=== PATIENT | male | born 1955 | race Caucasian/White ===

== ENCOUNTER 2018-08-18 18:34 | Emergency (ER) | payer OTHER, MEDICAID, SELFPAY ==
[2018-08-18 18:55] VITALS: BP 146/92; PULSE 64; RESP 18; TEMP 36.8; O2SAT 97; BMI 21.7
--- NOTE | 2018-08-18 19:34 | DI.US.S_ITS ---
PROCEDURE: US SCROTUM INDICATIONS: TESTICLE PAIN TECHNIQUE: Real-time scanning was performed of the scrotum and testicles, with image documentation. Color and pulse Doppler interrogation was performed of both testicles. COMPARISON: None. FINDINGS: Right: Testicle is normal in size at 1.5 x 2.5 x 3.7 cm, and mildly heterogeneous in echotexture. Epididymis is surgically absent. At the epididymal head area several cystic structures are present, presumably postoperative. No hydrocele or varicoceles. Overlying scrotal skin is normal in thickness. Left: Testicle is normal in size at 1.8 x 2.9 x 3.9 cm, and homogeneous in echotexture. Epididymis is normal in overall size and morphology but mildly heterogeneous in echotexture. Slight left hydrocele or varicoceles. Overlying scrotal skin is normal in thickness. Doppler: Color and pulse Doppler demonstrate normal and symmetric arterial flow in both testicles. There was no visualized evidence of definite hernia at either inguinal canal. IMPRESSION: No hernia found bilaterally, at the inguinal canals. Source of testicular pain is not seen. Blood flow appears patent both arterial and venous bilaterally. Reported prior epididymal resection on the right. No testicular or epididymal mass is found. Dictated by: Vladimir Perez M.D. on 08/18/2018 at 20:56 Approved by: Vladimir Perez M.D. on 08/18/2018 at 21:19
--- NOTE | 2018-08-18 19:36 | ED.MALEGU ---
HPI - Male Genitourinary <CATHRYN Everett - Last Filed: 08/18/18 22:26> General Chief complaint: Urogenital-Male Stated complaint: Groin and lower back pain Time Seen by Provider: 08/18/18 19:03 Source: patient and family Mode of arrival: ambulatory Limitations: no limitations History of Present Illness HPI Narrative: The patient is a 62-year-old male with history of colon cancer presents with a chief complaint of testicular pain. He states has been going on for several weeks and has gotten much worse. He saw his PCP for it on Monday, had an ultrasound on Monday and does not know the results. These were done at [facility]. He states he is very concerned about his upcoming colonoscopy on the of this month, as he is concerned that the positioning for the colonoscopy will aggravate his testicular pain. Denies any dysuria urgency or frequency. The patient states he is having a colonoscopy on the of this month. He states that his testicular pain is much improved since last night. He is presenting with his sister today. Related Data Allergies Allergy/AdvReac Type Severity Reaction Status Date / Time No Known Drug Allergies Allergy Verified 08/18/18 18:59 Review of Systems <CATHRYN Everett - Last Filed: 08/18/18 22:26> Review of Systems GENERAL: Denies chills, fatigue, malaise, fever, sweats. HEENT: Denies sinus pain, ear pain, sore throat, difficulty swallowing, dizziness. RESPIRATORY: Denies dyspnea, cough, wheezing, hemoptysis, sputum. CARDIOVASCULAR: Denies chest pain, palpitations, orthopnea, edema, GASTROINTESTINAL: Denies nausea, vomiting, abdominal pain, diarrhea, constipation, melena. : See HPI MUSCULOSKELETAL: denies weakness, joint pain, or bony pain SKIN: Denies rash, skin lesions, or other NEUROLOGIC: Denies weakness, headache, numbness, change in speech, confusion, seizures, incoordination. PSYCHIATRIC: No concerning psychosocial issues. 12 point review of systems is negative except for those stated above PFSH <CATHRYN Everett - Last Filed: 08/18/18 22:26> Medical History (Updated 08/18/18 @ 22:23 by CATHRYN Everett) Colon cancer (Acute) Social History Smoking Status: Current every day smoker Social History Smoking Status: Current every day smoker Exam <CATHRYN Everett - Last Filed: 08/18/18 22:26> Narrative Exam Narrative: GENERAL: Elderly chronically ill-appearing male HEAD: Atraumatic. Normocephalic. No temporal or scalp tenderness. EYES: Pupils equal round and reactive. Extraocular motions intact. No scleral icterus. No injection or drainage. ENT: Nose without bleeding, purulent drainage or septal hematoma. Throat without erythema, tonsillar hypertrophy or exudate. Uvula midline. Airway patent. NECK: Trachea midline. No JVD or lymphadenopathy. Supple, nontender, no meningeal signs. CARDIOVASCULAR: Regular rate and rhythm RESPIRATORY: Clear to auscultation. Breath sounds equal bilaterally. No wheezes, rales, or rhonchi. No cough. No increased respiratory effort. No accessory muscle use. No stridor. GASTROINTESTINAL: Abdomen soft, non-tender, nondistended. No hepato-splenomegaly, or palpable masses. No guarding. Active bowel sounds all 4 quadrants. EXTREMITIES: No clubbing, cyanosis, or edema. No joint tenderness, effusion, or edema noted. BACK: Nontender without deformity or crepitance. No flank tenderness. NEURO: AOx3. SKIN: No rash or erythema. : Performed with Gilbert PÉREZ as middle or intermediate school principal. No palpable hernias. No penile discharge or rashes noted. Slight pain to palpation of bilateral testicles. Cremasteric reflexes intact bilaterally Initial Vital Signs Initial Vital Signs: Vital Signs Temperature 98.3 F 08/18/18 18:55 Pulse Rate 64 08/18/18 18:55 Respiratory Rate 18 08/18/18 18:55 Blood Pressure 146/92 H 08/18/18 18:55 Pulse Oximetry 97 08/18/18 18:55 <Oscar Leo DO - Last Filed: 08/19/18 02:39> Initial Vital Signs Initial Vital Signs: Vital Signs Temperature 98.3 F 08/18/18 18:55 Pulse Rate 64 08/18/18 18:55 Respiratory Rate 18 08/18/18 18:55 Blood Pressure 146/92 H 08/18/18 18:55 Pulse Oximetry 97 08/18/18 18:55 Course <CATHRYN Everett - Last Filed: 08/18/18 22:26> Orders Ordered: ED Orders 08/18/18 19:34 US scrotum Stat 08/18/18 20:08 Complete Blood Count AUTO DIFF Stat Comprehensive Metabolic Panel Stat Lactate (Lactic Acid) Stat Discontinued Medications Ketorolac Tromethamine (Toradol) 60 mg IM NOW ONE Stop: 08/18/18 21:26 Last Admin: 08/18/18 22:08 Dose: 60 mg Vital Signs - 8 hr 08/18/18 18:55 08/18/18 21:46 08/18/18 22:38 Temperature 98.3 F Pulse Rate 64 55 L 60 Respiratory Rate 18 15 Blood Pressure 146/92 H 128/88 Blood Pressure [Right Arm] 133/91 H Pulse Oximetry 97 96 <Oscar Leo DO - Last Filed: 08/19/18 02:39> Orders Ordered: ED Orders 08/18/18 19:34 US scrotum Stat 08/18/18 20:08 Complete Blood Count AUTO DIFF Stat Comprehensive Metabolic Panel Stat Lactate (Lactic Acid) Stat Discontinued Medications Ketorolac Tromethamine (Toradol) 60 mg IM NOW ONE Stop: 08/18/18 21:26 Last Admin: 08/18/18 22:08 Dose: 60 mg Vital Signs - 8 hr 08/18/18 18:55 08/18/18 21:46 08/18/18 22:38 Temperature 98.3 F Pulse Rate 64 55 L 60 Respiratory Rate 18 15 Blood Pressure 146/92 H 128/88 Blood Pressure [Right Arm] 133/91 H Pulse Oximetry 97 96 MDM - Male Genitourinary <CATHRYN Everett - Last Filed: 08/18/18 22:26> Lab Data Result diagrams: 08/18/18 20:08 08/18/18 20:08 Lab Results 08/18/18 08/18/18 08/18/18 Range/Units 20:08 20:08 20:08 WBC 10.0 (4.5-11.0) X10^3/uL RBC 5.04 (4.5-5.9) X10^6/uL Hgb 15.3 (13.5-17.5) g/dL Hct 44.5 (41-53) % MCV 88.4 (80-100) fL MCH 30.3 (26-34) PG MCHC 34.3 (30-36) % RDW 14.6 (11.6-14.8) % Plt Count 271 (150-400) X10^3/uL Neut % (Auto) 60.8 (50-75) % Lymph % (Auto) 26.7 (25-40) % [place] % (Auto) 5.5 (3-14) % Eos % (Auto) 6.3 H (2-4) % Baso % (Auto) 0.7 (0-2) % Neut # (Auto) 6100 (5824-5120) /uL Lymph # (Auto) 2700 (9089-8426) /uL [place] # (Auto) 500 (0-900) /uL Eos # (Auto) 600 H (0-450) /uL Baso # (Auto) 100 (0-100) /uL Sodium 136 L (137-145) mmol/L Potassium 4.0 (3.4-5.1) mmol/L Chloride 102 (98-107) mmol/L Carbon Dioxide 27 (22-32) mmol/L BUN 6 L (9-20) mg/dL Creatinine 0.80 (0.66-1.25) mg/dL Estimated GFR > 60.0 (>60) mL/min BUN/Creatinine Ratio 7.5 (6-22) Glucose 99 (80-110) mg/dL Lactate 0.7 (0.7-2.1) mmol/L Calcium 9.3 (8.4-10.2) mg/dL Total Bilirubin 0.5 (0.2-1.3) mg/dL AST 23 (17-59) IU/L ALT 13 L (21-72) IU/L Alkaline Phosphatase 116 (38-126) U/L Total Protein 7.0 (6.3-8.2) g/dL Albumin 4.3 (3.5-5.0) g/dL Globulin 2.7 (1.7-4.1) g/dL Albumin/Globulin Ratio 1.6 (1.0-2.8) Urine Dip Bedside Urine Glucose Negative Bedside Urine Bilirubin - Negative Bedside Urine Ketone ++ 40 Urine Specific [place] 1.025 Bedside Urine Occult Blood - Negative Bedside Urine pH 6.0 Bedside Urine Protein +/- 15 Bedside Urine Urobilinogen 1+ 2mg Bedside Urine Nitrite - Negative Bedside Urine Leukocytes - Negative Esterase Imaging Data Scrotal ultrasound: Radiologist's impression: [address] [id number] Ultrasound Report Signed Patient: Rayshawn Kasper [facility]#: [id number] : 5Acct:[id number] Age/Sex: 62 / MDate of Service: 08/18/18 Loc: ED Accession Number: [id number] Procedure: US scrotum Ordering Provider: Ivania Davenport PROCEDURE: US SCROTUM INDICATIONS: TESTICLE PAIN TECHNIQUE: Real-time scanning was performed of the scrotum and testicles, with image documentation. Color and pulse Doppler interrogation was performed of both testicles. COMPARISON: None. FINDINGS: Right: Testicle is normal in size at 1.5 x 2.5 x 3.7 cm, and mildly heterogeneous in echotexture. Epididymis is surgically absent. At the epididymal head area several cystic structures are present, presumably postoperative. No hydrocele or varicoceles. Overlying scrotal skin is normal in thickness. Left: Testicle is normal in size at 1.8 x 2.9 x 3.9 cm, and homogeneous in echotexture. Epididymis is normal in overall size and morphology but mildly heterogeneous in echotexture. Slight left hydrocele or varicoceles. Overlying scrotal skin is normal in thickness. Doppler: Color and pulse Doppler demonstrate normal and symmetric arterial flow in both testicles. There was no visualized evidence of definite hernia at either inguinal canal. IMPRESSION: No hernia found bilaterally, at the inguinal canals. Source of testicular pain is not seen. Blood flow appears patent both arterial and venous bilaterally. Reported prior epididymal resection on the right. No testicular or epididymal mass is found. Dictated by: Vladimir Perez M.D. on 08/18/2018 at 20:56 Approved by: Vladimir Perez M.D. on 08/18/2018 at 21:19 MDM Narrative Medical decision making narrative: The patient is a 62-year-old male who presents with a chief complaint of testicular pain. He has a normal ultrasound. He has grossly normal exam. He has a negative UA, grossly normal CBC and CMP and a negative lactate. We attempted to get medical records of from [facility]. However they are unable to be obtained. I did discuss at length follow up with his primary care provider as well as following through with the urology referral placed by his PCP. I did give the patient a copy of his ultrasound report as well as the disc with the results. Discussed at length coming back to the emergency department for any acute concerns such as chest pain, shortness of breath. Encouraged follow-up with PCP. Patient was given Toradol in the emergency department. No questions or concerns upon discharge. <Oscar Leo DO - Last Filed: 08/19/18 02:39> Lab Data Lab Results 08/18/18 08/18/18 08/18/18 Range/Units 20:08 20:08 20:08 WBC 10.0 (4.5-11.0) X10^3/uL RBC 5.04 (4.5-5.9) X10^6/uL Hgb 15.3 (13.5-17.5) g/dL Hct 44.5 (41-53) % MCV 88.4 (80-100) fL MCH 30.3 (26-34) PG MCHC 34.3 (30-36) % RDW 14.6 (11.6-14.8) % Plt Count 271 (150-400) X10^3/uL Neut % (Auto) 60.8 (50-75) % Lymph % (Auto) 26.7 (25-40) % [place] % (Auto) 5.5 (3-14) % Eos % (Auto) 6.3 H (2-4) % Baso % (Auto) 0.7 (0-2) % Neut # (Auto) 6100 (5531-9400) /uL Lymph # (Auto) 2700 (2117-5764) /uL [place] # (Auto) 500 (0-900) /uL Eos # (Auto) 600 H (0-450) /uL Baso # (Auto) 100 (0-100) /uL Sodium 136 L (137-145) mmol/L Potassium 4.0 (3.4-5.1) mmol/L Chloride 102 (98-107) mmol/L Carbon Dioxide 27 (22-32) mmol/L BUN 6 L (9-20) mg/dL Creatinine 0.80 (0.66-1.25) mg/dL Estimated GFR > 60.0 (>60) mL/min BUN/Creatinine Ratio 7.5 (6-22) Glucose 99 (80-110) mg/dL Lactate 0.7 (0.7-2.1) mmol/L Calcium 9.3 (8.4-10.2) mg/dL Total Bilirubin 0.5 (0.2-1.3) mg/dL AST 23 (17-59) IU/L ALT 13 L (21-72) IU/L Alkaline Phosphatase 116 (38-126) U/L Total Protein 7.0 (6.3-8.2) g/dL Albumin 4.3 (3.5-5.0) g/dL Globulin 2.7 (1.7-4.1) g/dL Albumin/Globulin Ratio 1.6 (1.0-2.8) Urine Dip Bedside Urine Glucose Negative Bedside Urine Bilirubin - Negative Bedside Urine Ketone ++ 40 Urine Specific [place] 1.025 Bedside Urine Occult Blood - Negative Bedside Urine pH 6.0 Bedside Urine Protein +/- 15 Bedside Urine Urobilinogen 1+ 2mg Bedside Urine Nitrite - Negative Bedside Urine Leukocytes - Negative Esterase Discharge Plan Departure Patient Disposition: Home Clinical Impression: Testicle pain Discharge Date/Time: 08/18/18 22:39 Interventions: ED Discharge Assessment Last Done: 08/18/18 22:38 Activity Restrictions/Additional Instructions: Your ultrasound came back normal today with normal blood flow. Your lab work was overall good. Your ultrasound shows no signs of infection. As we discussed, please follow-up with primary care provider. I also suggest following through with the urology referral. Please come back to emergency department for any acute concerns such as chest pain, shortness of breath etc We did give you an injection of Toradol in the emergency department today. <Oscar Leo DO - Last Filed: 08/19/18 02:39> Cosign ED Attending Silvia Attestation: I was immediately available in the department for consultation. Documentation has been reviewed. I agree with assessment and plan.
[2018-08-18 20:17] LABS: Add Manual Diff / Slide Review NO; Basophils Absolute Auto 100 /uL (0-100); Basophils Percent Auto 0.7 % (0-2); Eosinophils Absolute Auto 600 /uL (0-450); Eosinophils Percent Auto 6.3 % (2-4); Hematocrit 44.5 % (41-53); Hemoglobin 15.3 g/dL (13.5-17.5); Lymphocytes Absolute Auto 2700 /uL (1100-4500); Lymphocytes Percent Auto 26.7 % (25-40); Mean Corpuscular HGB Conc 34.3 % (30-36); Mean Corpuscular Hemoglobin 30.3 PG (26-34); Mean Corpuscular Volume 88.4 fL (80-100); Monocytes Absolute Auto 500 /uL (0-900); Monocytes Percent Auto 5.5 % (3-14); Neutrophils Absolute Auto 6100 /uL (1500-7000); Neutrophils Percent Auto 60.8 % (50-75); Platelet Count 271 X10^3/uL (150-400); Red Blood Cell Count 5.04 X10^6/uL (4.5-5.9); Red Cell Distribution Width 14.6 % (11.6-14.8)
--- NOTE | 2018-08-18 20:21 | PC.NURSE ---
pt states he is in ed because told him to check in to evaluate testicle pain. We reports testicle pain that started with the left and has moved to bilateral in the last three months. He states that whenever he lays in position he testicles light up and his prescribed oxycodone did not touch it. He has an upcoming colonoscoy and is concerned that being in position during that procedure will stop blood flow to his testicles and he doesnt want to wake up wheeling me into surgery because of testicle. Provider notified and requested records from .
[2018-08-18 20:29] LABS: Alanine Aminotransferase 13 IU/L (21-72); Albumin 4.3 g/dL (3.5-5.0); Albumin Globulin Ratio 1.6 (1.0-2.8); Alkaline Phosphatase 116 U/L (38-126); Aspartate Aminotransferase 23 IU/L (17-59); BUN Creatinine Ratio 7.5 (6-22); Bilirubin Total 0.5 mg/dL (0.2-1.3); Blood Urea Nitrogen 6 mg/dL (9-20); Calcium 9.3 mg/dL (8.4-10.2); Carbon Dioxide 27 mmol/L (22-32); Chloride 102 mmol/L (98-107); Estimated Glomerular Filt Rate > 60.0 mL/min (>60); Globulin 2.7 g/dL (1.7-4.1); Glucose 99 mg/dL (80-110); HEMOLYSIS < 15 (0-50); Lactate (Lactic Acid) 0.7 mmol/L (0.7-2.1); Sodium 136 mmol/L (137-145)
[2018-08-18 21:46] VITALS: BP 133/91; PULSE 55; RESP 15; O2SAT 96
[2018-08-18] MEDS: KETOROLAC 60 MG/2 ML VIAL IM (22:08)
[2018-08-18 22:38] VITALS: BP 128/88; PULSE 60
== END 2018-08-18 22:39 | disposition home or self-care (01) ==
PROVIDERS: Emergency Provider Nurse Practitioner Family
DX: N50.819 Testicular pain, unspecified (principal)
CPT/HCPCS: 36415; 76870; 80053; 81003; 83605; 85025; 96372; 99282; 99284; J1885

== ENCOUNTER → 2018-10-01 16:01 | Outpatient (CLI) | payer OTHER, MEDICAID, SELFPAY ==
[2018-10-01 17:17] LABS: Alanine Aminotransferase 13 IU/L (21-72); Albumin 4.8 g/dL (3.5-5.0); Albumin Globulin Ratio 2.2 (1.0-2.8); Alkaline Phosphatase 122 U/L (38-126); Aspartate Aminotransferase 20 IU/L (17-59); BUN Creatinine Ratio 7.8 (6-22); Bilirubin Total 0.4 mg/dL (0.2-1.3); Blood Urea Nitrogen 7 mg/dL (9-20); Calcium 9.6 mg/dL (8.4-10.2); Carbon Dioxide 28 mmol/L (22-32); Chloride 104 mmol/L (98-107); Cholesterol 213 mg/dL (140-199); Estimated Glomerular Filt Rate > 60.0 mL/min (>60); Globulin 2.2 g/dL (1.7-4.1); Glucose 100 mg/dL (80-110); HDL Cholesterol 59 mg/dL (40-60); HEMOLYSIS < 15 (0-50); LDL Cholesterol Calculated 116 mg/dL (<100); Magnesium 2.3 mg/dL (1.6-2.3); Potassium 4.6 mmol/L (3.4-5.1); Sodium 140 mmol/L (137-145); Triglycerides 190 mg/dL (35-150)
[2018-10-01 17:48] LABS: Thyroid Stimulating Hormone 4.15 uIU/mL (0.47-4.68)
== END ==
PROVIDERS: Visit Provider Internal Medicine Cardiovascular Disease
DX: R00.2 Palpitations (principal); E78.5 Hyperlipidemia, unspecified; I10 Essential (primary) hypertension
CPT/HCPCS: 36415; 80053; 80061; 83735; 84443

== ENCOUNTER → 2019-01-18 09:50 | Outpatient (CLI) | payer OTHER, MEDICAID, SELFPAY ==
--- NOTE | 2019-01-18 10:09 | DI.CT.S_ITS ---
PROCEDURE: CT ABDOMEN WO/W CON COMPARISON: [facility], CT, CT ABDOMEN PELVIS WITH CONTRAST, 12/10/2018, 13:55. INDICATIONS: RENAL LESION FINDINGS: Lungs appear clear. Trace pericardial effusion. Heart is mildly enlarged. Redemonstration of left upper pole round renal lesion measuring approximately 1.9 cm in diameter. Precontrast attenuation measures approximately 27 Hounsfield units, and this measures approximately 39 and 64 Hounsfield units on arterial and delayed phase imaging respectively. Simple appearing left renal cyst more inferiorly on image 26 series 5. Presumed some 5 mm cyst in the upper pole of the right kidney, too small to characterize. Left renal vein appears unremarkable. There are scattered hepatic hypodense lesions, probably cysts or hemangiomas although too small to characterize. Gallbladder unremarkable. Pancreas grossly unremarkable. Prominence of the pancreatic duct is unchanged. The adrenal glands and right kidney otherwise within normal limits. Large amount of stool seen throughout the visualized bowel loops. 3.4 cm infrarenal abdominal aortic aneurysm as before. IMPRESSION: CT appearance and enhancement characteristics of left upper pole renal lesion is suspicious for solid neoplasm, considered renal cell carcinoma until proven otherwise. Solid nature could be further confirmed with dedicated renal ultrasound as clinically warranted. Infrarenal abdominal aortic aneurysm as before. Multiple hepatic lesions, statistically cysts or hemangiomas although several which are too small to characterize accurately. Dictated by: Stuart Leal M.D. on 01/18/2019 at 17:26 Approved by: Stuart Leal M.D. on 01/18/2019 at 17:36
[2019-01-18 10:26] LABS: Blood Urea Nitrogen 9 mg/dL (9-20); Estimated Glomerular Filt Rate > 60.0 mL/min (>60)
== END ==
PROVIDERS: Visit Provider Urology
DX: N28.9 Disorder of kidney and ureter, unspecified (principal); N28.1 Cyst of kidney, acquired; I51.7 Cardiomegaly; I71.4 Abdominal aortic aneurysm, without rupture; K76.9 Liver disease, unspecified
CPT/HCPCS: 36415; 74170; 82565; 84520; Q9967

== ENCOUNTER 2021-02-16 01:23 | Emergency (ER) | payer OTHER, MEDICAID, SELFPAY ==
[2021-02-16] VITALS (9 sets, daily range): BP systolic 110–134; BP diastolic 65–87; PULSE 59–77; RESP 20; TEMP 36.7; O2SAT 95–97
[2021-02-16 02:01] LABS: Add Manual Diff / Slide Review NO; Basophils Absolute Auto 100 /uL (0-100); Basophils Percent Auto 0.9 % (0-2); Eosinophils Absolute Auto 600 /uL (0-450); Eosinophils Percent Auto 6.1 % (2-4); Hemoglobin 15.5 g/dL (13.5-17.5); Lymphocytes Absolute Auto 2400 /uL (1100-4500); Lymphocytes Percent Auto 22.8 % (25-40); Mean Corpuscular HGB Conc 34.4 % (30-36); Mean Corpuscular Hemoglobin 30.5 PG (26-34); Mean Corpuscular Volume 88.5 fL (80-100); Monocytes Absolute Auto 700 /uL (0-900); Monocytes Percent Auto 6.2 % (3-14); Neutrophils Absolute Auto 6700 /uL (1500-7000); Platelet Count 319 X10^3/uL (150-400); Red Blood Cell Count 5.09 X10^6/uL (4.5-5.9); Red Cell Distribution Width 14.3 % (11.6-14.8); White Blood Cell Count 10.5 X10^3/uL (4.5-11.0)
[2021-02-16 02:02] LABS: Alanine Aminotransferase 12 IU/L (<50); Albumin 4.5 g/dL (3.5-5.0); Albumin Globulin Ratio 1.4 (1.0-2.8); Alkaline Phosphatase 103 U/L (38-126); Aspartate Aminotransferase 28 IU/L (17-59); BUN Creatinine Ratio 8.2 (6-22); Bilirubin Total 0.5 mg/dL (0.2-1.3); Blood Urea Nitrogen 8 mg/dL (9-20); Calcium 10.1 mg/dL (8.4-10.2); Carbon Dioxide 32 mmol/L (22-32); Chloride 101 mmol/L (98-107); Estimated Glomerular Filt Rate > 60.0 mL/min (>60); Globulin 3.2 g/dL (1.7-4.1); Glucose 101 mg/dL (80-110); HEMOLYSIS < 15 (0-50); Lipase 103 U/L (23-300); Sodium 137 mmol/L (137-145); Total Protein 7.7 g/dL (6.3-8.2)
--- NOTE | 2021-02-16 03:42 | DI.CT.S_ITS ---
PROCEDURE: CT ABDOMEN PELVIS W CON INDICATIONS: Left lower quadrant pain, history of colon cancer and resection TECHNIQUE: After the administration of IV contrast, axial sections were acquired from the lung bases to the pubic symphysis. Coronal and sagittal reformats were performed. For radiation dose reduction, the following was used: automated exposure control, adjustment of mA and/or kV according to patient size. COMPARISON: [facility], CT, CT ABDOMEN PELVIS WITH CONTRAST, 09/05/2020, 16:27. Outside Film, CT, CT ABDOMEN RENAL PROTOCOL, 04/03/2020, 14:43. Outside Film, US, US RENAL COMPLETE, 08/15/2019, 15:15. Outside Film, CT, CT ABDOMEN PELVIS WITHOUT CONTRAST, 03/10/2014, 18:35. Outside Film, CT, CT ABDOMEN PELVIS WITH CONTRAST, 07/22/2015, 4:26. CT, CT ABDOMEN WO/W CON, 01/18/2019, 10:44. [facility], CT, CT ABDOMEN PELVIS WITH CONTRAST, 12/10/2018, 13:55. [facility], CT, CT ABDOMEN RENAL PROTOCOL, 05/01/2019, 12:41. [facility], CR, XR CHEST 2 VIEWS, 08/02/2019, 11:07. FINDINGS: Image quality: Excellent. Lung bases: Lung bases are clear. Mild emphysema.. Heart: Normal size. Sternotomy. There is a cardiac pacemaker. ABDOMEN: Liver: Normal size. Multiple hepatic hypodensities are likely cysts. Gallbladder: Unremarkable. Biliary ducts: Unremarkable. Pancreas: Unremarkable. Spleen: Unremarkable. Adrenal Glands: Unremarkable. Kidneys and Ureters: A 1.7 x 1.9 cm hypoenhancing mass is again noted in the superior pole of the left kidney, unchanged in size. Bilateral renal cysts. The largest cyst measures 2.1 cm in the lateral aspect of the left left kidney. Stomach and Bowel: Stomach, small bowel loops, and colon are unremarkable. Surgical suture in the splenic flexure There is a large amount of stool in colon. Normal appendix. Peritoneum: No abnormal intraperitoneal fluid. No free air. Ventral Wall: No hernia. Abdominal Nodes: No retroperitoneal or mesenteric adenopathy by size criteria. Vessels: There is saccular aortic aneurysm just below the renal arteries arising from the lateral wall of the aorta measuring 3.6 cm AP, 3.9 cm transverse and 4.8 cm longitudinal. PELVIS: Pelvic Organs: Unremarkable. Bladder: Mild concentric thickening of bladder wall. Enlarged prostate. Pelvic Nodes: No enlarged lymph nodes. Miscellaneous: No inguinal hernias are seen. Bones: Mild levoscoliosis. Degenerative changes are noted. IMPRESSION: 1. No acute abnormalities in abdomen or pelvis. 2. A large amount of stool in colon. 3. Infrarenal abdominal aortic aneurysm. 4. Stable 1.7 x 1.9 cm hypoenhancing mass in the superior pole of the left kidney. Renal cell carcinoma needs to be excluded. 5. Multiple hepatic cysts. 6. Enlarged prostate. Mild concentric thickening of bladder wall may be secondary to chronic bladder outlet obstruction. No significant discrepancy with the small craft operator radiology preliminary report. Dictated by: Uday Muhammad M.D. on 02/16/2021 at 8:09 Approved by: Uday Muhammad M.D. on 02/16/2021 at 8:32
--- NOTE | 2021-02-16 03:42 | ED_ITS ---
HPI - Abdominal Pain General Chief Complaint: Abdominal Pain Stated Complaint: abdomin/back/neck pain x7 days Time Seen by Provider: 02/16/21 03:29 Source: patient Mode of arrival: Ambulatory History of Present Illness HPI narrative: Patient is a 65-year-old male with history of thyroid cancer and colon cancer with colon resection x2 presenting today with ongoing left lower quadrant pain. He said he has had this off and on for the last 2 months he has been evaluated with CT and ultrasound. He is taking pain medication. However the pain has intensified and gotten significantly worse tonight. He also states that his rectal sphincter is is not working like it should. He does not sense when he has to have a bowel movement and he bears down quite a bit and is able to have small amounts of stool. He denies any nausea vomiting no abdominal distension no fever or chills. He is worried there might be a hernia which he was told but ultrasound that there was however CT did not detected. He was told he has slow transit got and is supposed to go to physical therapy however he is having a hard time getting in to physical therapy it has been over a month. He is able to have bowel movement if he help open his sphincter with his finger. He states colon cancer was 25 years ago he has been in remission from that for a long time . While going to colon cancer he developed thyroid cancer that required radiation that too is in remission. Related Data Allergies Allergy/AdvReac Type Severity Reaction Status Date / Time gabapentin Allergy Severe Hallucinati Verified 02/09/21 09:37 ng nortriptyline Allergy Severe Chest Pain Verified 02/09/21 09:37 duloxetine [From Cymbalta] Allergy Intermediate Palpitation Verified 02/09/21 09:37 s pregabalin Allergy Intermediate VISION Verified 02/09/21 09:37 CHANGES Review of Systems Review of Systems Narrative: GENERAL: Denies chills, fatigue, malaise, fever, sweats, travel HEENT: Denies sinus pain, ear pain, sore throat, difficulty swallowing, neck pain RESPIRATORY: Denies dyspnea, cough, wheezing, hemoptysis, sputum. CARDIOVASCULAR: Denies chest pain, palpitations, orthopnea, edema GASTROINTESTINAL: See HPI : Denies dysuria, frequency, incontinence, hematuria, urinary retention, flank pain. MUSCULOSKELETAL: Denies weakness, joint pain, or bony pain SKIN: No rash, no erythema, no pruritus NEUROLOGIC: Denies weakness, dizziness, headache, numbness, change in speech, confusion PSYCHIATRIC: No concerning psychosocial issues. 12 point review of systems is negative except for those stated above and HPI Patient History Medical History (Updated 02/16/21 @ 05:22 by Bianka Braswell DO) Colon cancer Surgical History (Updated 02/09/21 @ 09:33 by Delaney Waters LPN) H/O abdominal surgery History of colon surgery History of hernia surgery History of testicular surgery History of thoracic surgery History of thyroid surgery Family History (Updated 02/09/21 @ 09:34 by Delaney Waters LPN) Mother Cancer Sister Thyroid cancer Grandmother Cancer Family/Other Cancer Social History Smoking Status: Former smoker Smoking Status: Former smoker alcohol intake frequency: 0-2 drinks per day Substance Use Type: marijuana Exam Initial Vital Signs Initial Vital Signs: Vital Signs Temperature 98.0 F 02/16/21 01:28 Pulse Rate 77 02/16/21 01:28 Respiratory Rate 20 02/16/21 01:28 Blood Pressure 134/87 02/16/21 01:28 Pulse Oximetry 97 02/16/21 01:28 GENERAL: Alert 65-year-old male curled in a position overall failures thin and chronically ill. Appears in pain HEENT: Head atraumatic,EOMI, pupils reactive, face symmetric, [moist] mucous membranes CARDIOVASCULAR: Regular rate and rhythm without murmurs, rubs or gallops. RESPIRATORY: Breath sounds equal bilaterally, no wheezes rales or rhonchi. ABDOMEN: Soft, multiple scars increased be bowel sounds in all 4 quadrants left lower quadrant but no swelling or bulge appreciated EXTREMITIES: Normal range of motion, no clubbing or edema. Neurovascularly intact NEUROLOGICAL: Alert and oriented x4.Normal gait and speech. Cranial nerves II through XII grossly intact. SKIN: Warm, dry, no laceration, no petechiae, no rashes or lesions. Course Orders Ordered: Discontinued Medications Hydromorphone HCl (Hydromorphone 1 Mg Inj) 1 mg IV NOW ONE Stop: 02/16/21 03:43 Last Admin: 02/16/21 04:26 Dose: 1 mg Documented by: NEVIN Vital Signs Vital signs: Vital Signs - 8 hr 02/16/21 01:28 02/16/21 02:39 02/16/21 03:00 Temperature 98.0 F Pulse Rate 77 60 60 Respiratory Rate 20 Blood Pressure 134/87 128/77 Pulse Oximetry 97 97 95 MDM - Abdominal Pain Lab Data Result diagrams: 02/16/21 01:39 02/16/21 01:39 Labs: Lab Results 02/16/21 02/16/21 02/16/21 Range/Units 01:39 01:39 03:34 WBC 10.5 (4.5-11.0) X10^3/uL RBC 5.09 (4.5-5.9) X10^6/uL Hgb 15.5 (13.5-17.5) g/dL Hct 45.0 (41-53) % MCV 88.5 (80-100) fL MCH 30.5 (26-34) PG MCHC 34.4 (30-36) % RDW 14.3 (11.6-14.8) % Plt Count 319 (150-400) X10^3/uL Neut % (Auto) 64.0 (50-75) % Lymph % (Auto) 22.8 L (25-40) % [place] % (Auto) 6.2 (3-14) % Eos % (Auto) 6.1 H (2-4) % Baso % (Auto) 0.9 (0-2) % Neut # (Auto) 6700 (4108-3950) /uL Lymph # (Auto) 2400 (5094-5756) /uL [place] # (Auto) 700 (0-900) /uL Eos # (Auto) 600 H (0-450) /uL Baso # (Auto) 100 (0-100) /uL Sodium 137 (137-145) mmol/L Potassium 4.0 (3.4-5.1) mmol/L Chloride 101 (98-107) mmol/L Carbon Dioxide 32 (22-32) mmol/L BUN 8 L (9-20) mg/dL Creatinine 0.98 (0.66-1.25) mg/dL Estimated GFR > 60.0 (>60) mL/min BUN/Creatinine Ratio 8.2 (6-22) Glucose 101 (80-110) mg/dL Calcium 10.1 (8.4-10.2) mg/dL Total Bilirubin 0.5 (0.2-1.3) mg/dL AST 28 (17-59) IU/L ALT 12 (<50) IU/L Alkaline Phosphatase 103 (38-126) U/L Total Protein 7.7 (6.3-8.2) g/dL Albumin 4.5 (3.5-5.0) g/dL Globulin 3.2 (1.7-4.1) g/dL Albumin/Globulin Ratio 1.4 (1.0-2.8) Lipase 103 (23-300) U/L Urine RBC 0-1/hpf (0-5/HPF) Urine WBC None seen (0-5/HPF) Urine Bacteria None seen (None) Ur Culture Indicated? Cult not indicated Point of care testing: Urine Dip Bedside Urine Glucose Negative Bedside Urine Bilirubin - Negative Bedside Urine Ketone - Negative Urine Specific [place] 1.015 Bedside Urine Occult Blood +/- Bedside Urine pH 6.0 Bedside Urine Protein - Negative Bedside Urine Urobilinogen - Negative Bedside Urine Nitrite - Negative Bedside Urine Leukocytes - Negative Esterase Imaging Data CT scan - abdomen/pelvis: Radiologist's Impression: Preliminary report large volume of stool within colon compatible with constipation. Infrarenal abdominal aortic aneurysm no evidence of rupture or leak. Probable hyperdense cyst within upper pole of left kidney MDM Narrative Medical decision making narrative: The patient is having have issues with having bowel movements and sphincter. He needs physical therapy. Her his pain today seems to be in his left inguinal region no evidence of hernia felt or appreciated on CT. This pain his better here. He is most concerned about not being able to have a bowel movement trying to get in physical therapy and being unable to. He feels like his he needs something in his rectum, to open his sphincter to allow stool to pass. I did give him what radiology uses for rectal contrast, to help prevent him from going to [employer] to find alternative. Blood work is overall reassuring. He has close follow-up with his providers. Strongly encouraged him to call and try and get into physical therapy for pelvic floor rehabilitation. Discharge Plan Departure Patient Disposition: Home Clinical Impression: Constipation Instructions: DI for Constipation Activity Restrictions/Additional Instructions: *You have been diagnosed with constipation *What to do: At this time please continue the physical therapy and continue to call them. *Continue to take medications as directed *Follow up with your primary care provider in 2-3 days *Return to ER if you should have increasing pain, abdominal distension/swelling, vomiting or any new, worsening or concerning symptoms Referrals: Mary Mills DO [Primary Care Provider] - Isak Galo MD [Non-Staff] -
[2021-02-16 03:57] LABS: Bacteria Urine None Seen; Culture Indicated Urine Cult Not Indicated; RBC Urine 0-1/HPF (0-5/HPF); WBC Urine None Seen (0-5/HPF)
[2021-02-16] MEDS: HYDROMORPHONE 1 MG INJ IV (04:26)
== END 2021-02-16 06:36 | disposition home or self-care (01) ==
PROVIDERS: Emergency Provider Emergency Medicine; PCP Family Medicine
DX: K59.00 Constipation, unspecified (principal)
CPT/HCPCS: 74177; 80053; 81003; 81015; 83690; 85025; 96374; 99284; J1170; Q9967

== ENCOUNTER 2021-06-08 13:45 | Outpatient (RCR) | payer OTHER, MEDICAID, SELFPAY ==
--- NOTE | 2021-04-13 13:50 | PT.OPPOC ---
Physical, Occupational & Speech Therapy At [facility] Current Diagnoses Fecal impaction (04/13/21) Slow transit constipation (04/13/21) Visit Care Team Role Provider Type Mary Mills DO Attending Provider Non-Staff Family Provider Primary Care Provider Referring Provider Specialty: Family Practice Address: [address] [place] [address], [id number] Email: Plan Of Care PT-OP-T Assessment and Plan Start: 04/13/21 13:39 Freq: Status: Active Protocol: Document 04/13/21 13:50 [facility] (Rec: 04/13/21 15:29 [facility] [id number]) Physical Therapy Assessment Rehab Potential Rehabilitation Potential Fair Evaluation Complexity Number of Personal Factors/Comorbidities 1-2 Number of Body Systems Impaired 3 Clinical Presentation at Evaluation Evolving Impairments Impairments Activity Tolerance,Functional Activities,Pain,Soft Tissue Mobility,Tone Other Impairments inability to have a bowel movement at this time due to ileostomy, prior to surgery pt had constipation issues and rectal pain with attempting to have a bowel movement Goals 3 Impairment Pt lacks a home program to address pelvic and sacral/ coccyx pain Short Term Goal (STG) pt is educated on a HEP with stretches and self mobilizations to help reduce his pelvic, sacrum, and coccyx pain STG Duration 5 weeks 2 Impairment Pain at the sacral attachments and coccxy attachments of the gluteals and posterior pelvic floor rated 8/10 Short Term Goal (STG) Rayshawn is educated on stretches to help relax the posterior pelvic floor and gluteal muscles STG Duration 4 weeks Yard Clerk Goal (LTG) with manual therapy treatments and stretching Rayshawn reports a overall reduction in pain around the sacrum and coccyx LTG Duration 12 weeks + 1 Impairment pelvic pain and history of rectal pain with bowel movements Prison Goal (LTG) Rayshawn's goal is to relax his pelvic floor decreasing pain. He would like to have the ileostomy bag removed once his pelvic floor tone is relaxed to be successful with bowel movements LTG Duration 12 weeks + Assessment Summary Assessment Rayshawn is a 65 year old male referred to PT with slow transit constipation. He was referred back in December of 2020 but hadn't been seen yet. 10 days ago his symptoms progressed and he ended up in surgery for a Ileostomy with a external ostomy bag in place. The patient reports his surgeon just looped his small intestine and still wanted him to do PT to try and relax the pelvic floor so that possibly the surgery could be reversed . A call was placed into Dr Beth Galo's office and I spoke with his nurse Traci who confirmed that Dr. Galo did indeed want PT to try and relax the pelvic floor. He would like EMG biofeedback for pelvic floor relaxation. Rayshawn has a history of rectal sudhakar and over the last month prior to his surgery he was having a lot of pain on the inside of the anus that was extremely painful like a hemorrhoid He had described this for his doctor as a deep pain more on the right side. Rayshawn reports he feels that his stool would get stuck. He described a bowel movement every 3-5 days. He had been taking Miralax, enemas and stool softeners to help with bowel movements. Rayshawn's constipation began 17 years ago, 5 years after his hemicolectomy for his colon cancer. He has a history of a partial colectomy with anastomosis for colonic obstruction on 10/01/1999. Pt also describes a history of tailbone pain and has had a episode where fell onto his tailbone. Pt was given skin prep today from our wound care department as he notes that the edge of his bag is irritating his skin. He has a follow up with wound care at [facility] on Apr 15. I wasn't able to speak with Dr. Galo's nurse until after Rayshawn's appointment today so pelvic floor evaluation will be done next visit and we will begin EMG biofeedback for pelvic floor relaxation. Physical Therapy Plan Frequency and Duration Frequency of Treatment 1x/Week Duration of Treatment 8 Plan of Care Start Date 04/13/21 Plan of Care End Date 06/15/21 Therapeutic Interventions Therapeutic Interventions Home Exercise Program, Lymphedema Management,Manual Therapy,Neuromuscular Re- education,Patient/Caregiver Education,Self-Care/Home Management,Sensory Integration ,Soft Tissue Mobilization, Therapeutic Exercises Modalities Biofeedback Next Visit Focus/Plan Next Note Type Treatment Note Next Visit Plan Pelvic floor assessment next visit and begin EMG biofeedback for relaxed awareness of the pelvic floor muscles. Plan of Care Dates Plan of Care Start Date 04/13/21 Plan of Care End Date 06/15/21 Electronically Signed by: Sonia Bower, PT 04/27/21 [id number] Please Sign and Return: I have reviewed this Plan of Care and certify that the skilled therapy services above are required to meet the patient?s needs. Physician Signature Date Printed Name and Credentials Clinical Instructor Signature Printed Name and Credentials
--- NOTE | 2021-04-13 13:58 | PT.OIE ---
Current Diagnoses Fecal impaction (04/13/21) Slow transit constipation (04/13/21) Past Medical History (Last Updated 08/18/18 @ 22:23 [facility] Colon cancer H/O abdominal surgery History of colon surgery History of hernia surgery History of testicular surgery History of thoracic surgery History of thyroid surgery Past Surgical History (Last Updated 02/09/21 @ 09:33 by Delaney Waters LPN) H/O abdominal surgery History of colon surgery History of hernia surgery History of testicular surgery History of thoracic surgery History of thyroid surgery Visit Care Team Role Provider Type Mary Mills DO Attending Provider Non-Staff Family Provider Primary Care Provider Referring Provider Specialty: Family Practice Address: [address] [place] [address], [id number] Email: Physical Therapy Initial Evaluation PT-OP-A Visit Information Start: 04/13/21 13:39 Freq: Status: Active Protocol: Document 04/13/21 13:50 [facility] (Rec: 04/13/21 15:18 [facility] [id number]) Out-Patient Physical Therapy Visit Information Visit Information Visit Type Initial Evaluation Visit Start Time 13:45 Visit Stop Time 14:30 Total Visit Minutes 45 Visit Number 1 Evaluation Information Evaluation Date 04/13/21 PT-OP-B Current Condition Start: 04/13/21 13:39 Freq: Status: Active Protocol: Document 04/13/21 13:50 [facility] (Rec: 04/13/21 13:57 [facility] [id number]) Current Condition History of Current Condition History of Current Condition pt was in surgery 10 days ago and he did a iliostomy. He was at [facility]. He feels like his bag keeps breaking. He feels infected at the bag sight. He has been to [facility] multiple times and has a DR appt on . He has a hx of colon cancer and a 1/3 of his colon was removed. He reports a lot of pain in his back and in his pelvis. PT lives in [place]. PT-OP-F Manual Assessment Start: 04/13/21 13:39 Freq: Status: Active Protocol: Document 04/13/21 13:45 [facility] (Rec: 04/14/21 09:37 [facility] [id number]) Manual Assessments Soft Tissue Assessment Soft Tissue Mobility Assessment pt is 10 days post op ileostomy with ileostomy bag, there are stiches still healing on the midline of his abdomen, some scar tissue present in the midline. There is a area still healing on the left side of the abdomen that was still showing bruising. Pt has scar tissue along the abdominal wall from previous colon surgeries. Scar tissue mobility was assessed gently PT-OP-J Posture/Palpation/Skin Start: 04/13/21 13:39 Freq: Status: Active Protocol: Document 04/13/21 13:45 [facility] (Rec: 04/14/21 09:37 [facility] [id number]) Posture Evaluation Position Standing Evaluation View Lateral L-Spine Posture Flexed Shoulder Posture (L) Rounded,(R) Rounded,(L) Forward,(R) Forward Pelvis Posture Posterior Tilted Comments Posture Comments pt is standing in a posterior pelvic tilt with gluteals tightened and guarded. Palpation Assessment Location gluteals Palpation Location gluteals and piriformis attachment to the sacrum Palpation Findings Soft Tissue Tightness,Spasm, Muscle Guarding Palpation Details tightness in the gluteals and posterior pelvic floor attachments to the sacrum, pt appears to be in a guarded position with the gluteals Skin Assessment Incisional Assessment Incision Appearance/Comments pt reports his bag seems to be coming lose when he is sittng in the car and bends over. He notes it spilled on him while he was driving and he was worried about skin infection. I did inspect his skin around the bag and it did look like his skin was irritated on the bottom portion of the bag. I brought in our wound care professional who visually inspected the bag and gave the patient some skin prep to help decrease tissue irritation from the bag. He is to see wound care in [facility] on . PT-OP-K Range of Motion Start: 04/14/21 09:37 Freq: Status: Active Protocol: Document 04/13/21 13:45 [facility] (Rec: 04/14/21 09:40 [facility] [id number]) Hip Goniometric Range of Motion Hip Left Hip ROM WFL No Testing Position Supine Straight Leg Raise 40 External Rotation 10 Right Hip ROM WFL No Testing Position Supine Straight Leg Raise 40 External Rotation 10 Hip ROM Limitations Hip ROM Limitations Soft Tissue Tightness Comments tightness into hip ER bilaterally, piriformis tightness SLT limited to 40 degrees B with hamstring tightness PT-OP-T Assessment and Plan Start: 04/13/21 13:39 Freq: Status: Active Protocol: Document 04/13/21 13:50 [facility] (Rec: 04/13/21 15:29 [facility] [id number]) Physical Therapy Assessment Rehab Potential Rehabilitation Potential Fair Evaluation Complexity Number of Personal Factors/Comorbidities 1-2 Number of Body Systems Impaired 3 Clinical Presentation at Evaluation Evolving Impairments Impairments Activity Tolerance,Functional Activities,Pain,Soft Tissue Mobility,Tone Other Impairments inability to have a bowel movement at this time due to ileostomy, prior to surgery pt had constipation issues and rectal pain with attempting to have a bowel movement Goals 3 Impairment Pt lacks a home program to address pelvic and sacral/ coccyx pain Short Term Goal (STG) pt is educated on a HEP with stretches and self mobilizations to help reduce his pelvic, sacrum, and coccyx pain STG Duration 5 weeks 2 Impairment Pain at the sacral attachments and coccxy attachments of the gluteals and posterior pelvic floor rated 8/10 Short Term Goal (STG) Rayshawn is educated on stretches to help relax the posterior pelvic floor and gluteal muscles STG Duration 4 weeks Internet Marketing Consultant Goal (LTG) with manual therapy treatments and stretching Rayshawn reports a overall reduction in pain around the sacrum and coccyx LTG Duration 12 weeks + 1 Impairment pelvic pain and history of rectal pain with bowel movements Internet Marketing Consultant Goal (LTG) Rayshawn's goal is to relax his pelvic floor decreasing pain. He would like to have the ileostomy bag removed once his pelvic floor tone is relaxed to be successful with bowel movements LTG Duration 12 weeks + Assessment Summary Assessment Rayshawn is a 65 year old male referred to PT with slow transit constipation. He was referred back in December of 2020 but hadn't been seen yet. 10 days ago his symptoms progressed and he ended up in surgery for a Ileostomy with a external ostomy bag in place. The patient reports his surgeon just looped his small intestine and still wanted him to do PT to try and relax the pelvic floor so that possibly the surgery could be reversed . A call was placed into Dr Beth Galo's office and I spoke with his nurse Traci who confirmed that Dr. Galo did indeed want PT to try and relax the pelvic floor. He would like EMG biofeedback for pelvic floor relaxation. Rayshawn has a history of rectal sudhakar and over the last month prior to his surgery he was having a lot of pain on the inside of the anus that was extremely painful like a hemorrhoid He had described this for his doctor as a deep pain more on the right side. Rayshawn reports he feels that his stool would get stuck. He described a bowel movement every 3-5 days. He had been taking Miralax, enemas and stool softeners to help with bowel movements. Rayshawn's constipation began 17 years ago, 5 years after his hemicolectomy for his colon cancer. He has a history of a partial colectomy with anastomosis for colonic obstruction on 10/01/1999. Pt also describes a history of tailbone pain and has had a episode where fell onto his tailbone. Pt was given skin prep today from our wound care department as he notes that the edge of his bag is irritating his skin. He has a follow up with wound care at [facility] on Apr 15. I wasn't able to speak with Dr. Galo's nurse until after Rayshawn's appotintment today so pelvic floor evaluation will be done next visit and we will begin EMG biofeedback for pelvic floor relaxation. Physical Therapy Plan Frequency and Duration Frequency of Treatment 1x/Week Duration of Treatment 8 Plan of Care Start Date 04/13/21 Plan of Care End Date 06/15/21 Therapeutic Interventions Therapeutic Interventions Home Exercise Program, Lymphedema Management,Manual Therapy,Neuromuscular Re- education,Patient/Caregiver Education,Self-Care/Home Management,Sensory Integration ,Soft Tissue Mobilization, Therapeutic Exercises Modalities Biofeedback Next Visit Focus/Plan Next Note Type Treatment Note Next Visit Plan Pelvic floor assessment next visit and begin EMG biofeedback for relaxed awareness of the pelvic floor muscles.
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
--- NOTE | 2021-06-03 15:16 | PT.OTN ---
Current Diagnoses Fecal impaction (06/03/21) Slow transit constipation (06/03/21) Physical Therapy Treatment Note PT-OP-A Visit Information Start: 04/13/21 13:39 Freq: Status: Active Protocol: Document 06/03/21 14:33 [facility] (Rec: 06/03/21 15:15 [facility] [id number]) Out-Patient Physical Therapy Visit Information Visit Information Visit Type Treatment Note Visit Start Time 14:30 Visit Stop Time 15:15 Total Visit Minutes 45 Visit Number 5 PT-OP-B Current Condition Start: 04/13/21 13:39 Freq: Status: Active Protocol: Document 04/13/21 13:50 [facility] (Rec: 04/13/21 13:57 [facility] [id number]) Current Condition History of Current Condition History of Current Condition pt was in surgery 10 days ago and he did a iliostomy. He was at [facility]. He feels like his bag keeps breaking. He feels infected at the bag sight. He has been to [facility] multiple times and has a DR appt on . He has a hx of colon cancer and a 1/3 of his colon was removed. He reports a lot of pain in his back and in his pelvis. PT lives in [place]. PT-OP-C Subjective Start: 04/13/21 13:39 Freq: Status: Active Protocol: Document 06/03/21 14:33 [facility] (Rec: 06/03/21 15:15 [facility] [id number]) OP-PT Subjective Patient Comments Patient Comments pt is having back spasms today , he notes he has to go in for a biopsy PT-OP-F Manual Assessment Start: 04/13/21 13:39 Freq: Status: Active Protocol: Document 04/13/21 13:45 [facility] (Rec: 04/14/21 09:37 [facility] [id number]) Manual Assessments Soft Tissue Assessment Soft Tissue Mobility Assessment pt is 10 days post op ileostomy with ileostomy bag, there are stiches still healing on the midline of his abdomen, some scar tissue present in the midline. There is a area still healing on the left side of the abdomen that was still showing bruising. Pt has scar tissue along the abdominal wall from previous colon surgeries. Scar tissue mobility was assessed gently PT-OP-J Posture/Palpation/Skin Start: 04/13/21 13:39 Freq: Status: Active Protocol: Document 04/13/21 13:45 [facility] (Rec: 04/14/21 09:37 [facility] [id number]) Posture Evaluation Position Standing Evaluation View Lateral L-Spine Posture Flexed Shoulder Posture (L) Rounded,(R) Rounded,(L) Forward,(R) Forward Pelvis Posture Posterior Tilted Comments Posture Comments pt is standing in a posterior pelvic tilt with gluteals tightened and guarded. Palpation Assessment Location gluteals Palpation Location gluteals and piriformis attachment to the sacrum Palpation Findings Soft Tissue Tightness,Spasm, Muscle Guarding Palpation Details tightness in the gluteals and posterior pelvic floor attachments to the sacrum, pt appears to be in a guarded position with the gluteals Skin Assessment Incisional Assessment Incision Appearance/Comments pt reports his bag seems to be coming lose when he is sittng in the car and bends over. He notes it spilled on him while he was driving and he was worried about skin infection. I did inspect his skin around the bag and it did look like his skin was irritated on the bottom portion of the bag. I brought in our wound health care legal assistant who visually inspected the bag and gave the patient some skin prep to help decrease tissue irritation from the bag. [facility] PT-OP-K Range of Motion Start: 04/14/21 09:37 Freq: Status: Active Protocol: Document 04/13/21 13:45 [facility] (Rec: 04/14/21 09:40 [facility] [id number]) Hip Goniometric Range of Motion Hip Left Hip ROM WFL No Testing Position Supine Straight Leg Raise 40 External Rotation 10 Right Hip ROM WFL No Testing Position Supine Straight Leg Raise 40 External Rotation 10 Hip ROM Limitations Hip ROM Limitations Soft Tissue Tightness Comments tightness into hip ER bilaterally, piriformis tightness SLT limited to 40 degrees B with hamstring tightness PT-OP-Q Treatments Start: 04/13/21 13:39 Freq: Status: Active Protocol: Document 06/03/21 14:33 [facility] (Rec: 06/03/21 15:15 [facility] [id number]) Therapeutic Exercises Supine Exercises templates for eccentric control and cooordination Reps/Minutes x 5 min pelvic floor contract/relax Reps/Minutes x 10reps Comments 10.9 uv average and max of 22. 6 average rest is a 2.8 diaphragmatic breathing Reps/Minutes x 5 min happy baby stretch Reps/Minutes hold 1-2 minutes pelvic floor stretches Supine Exercise Name modified squat stretch Reps/Minutes hold 1-2 minutes Comments average 8 rest 4.5 uv Neuro Re-Education Treatment Other Activities NMES for the pelvic floor Details NMES Reps/Duration 10 min Comments NMES was used to help with sensation of pelvic floor contractions and pt could feel the NMES at level 6 PT-OP-T Assessment and Plan Start: 04/13/21 13:39 Freq: Status: Active Protocol: Document 06/03/21 14:33 [facility] (Rec: 06/03/21 15:15 [facility] [id number]) Physical Therapy Assessment Goals 3 Impairment Pt lacks a home program to address pelvic and sacral/ coccyx pain Short Term Goal (STG) pt is educated on a HEP with stretches and self mobilizations to help reduce his pelvic, sacrum, and coccyx pain STG Duration 5 weeks 2 Impairment Pain at the sacral attachments and coccxy attachments of the gluteals and posterior pelvic floor rated 8/10 Short Term Goal (STG) Rayshawn is educated on stretches to help relax the posterior pelvic floor and gluteal muscles STG Duration 4 weeks Retirement Goal (LTG) with manual therapy treatments and stretching Rayshawn reports a overall reduction in pain around the sacrum and coccyx LTG Duration 12 weeks + 1 Impairment pelvic pain and history of rectal pain with bowel movements Custom Furrier Goal (LTG) Rayshawn's goal is to relax his pelvic floor decreasing pain. He would like to have the ileostomy bag removed once his pelvic floor tone is relaxed to be successful with bowel movements LTG Duration 12 weeks + Assessment Summary Assessment resting tone 1.4 uv today to start off with after 10 reps of contract relax he was able to relax to baseline. We did do heat today on his low back and this helps his back relax his back. We also started NMES today which was tolerated well and Rayshawn was able to feel sensation at level 6 Physical Therapy Plan Frequency and Duration Frequency of Treatment 1x/Week Duration of Treatment 8 Plan of Care Start Date 04/13/21 Plan of Care End Date 06/15/21 Therapeutic Interventions Therapeutic Interventions Home Exercise Program, Lymphedema Management,Manual Therapy,Neuromuscular Re- education,Patient/Caregiver Education,Self-Care/Home Management,Sensory Integration ,Soft Tissue Mobilization, Therapeutic Exercises Modalities Biofeedback Next Visit Focus/Plan Next Note Type Treatment Note Next Visit Plan EMG biofeedback relaxation techniques for the pelvic floor, pelvic stretches, contract relax of the pelvic floor
--- NOTE | 2021-06-08 17:46 | PT.OTN ---
Current Diagnoses Fecal impaction (06/08/21) Slow transit constipation (06/08/21) Physical Therapy Treatment Note PT-OP-A Visit Information Start: 04/13/21 13:39 Freq: Status: Active Protocol: Document 06/08/21 13:56 [facility] (Rec: 06/08/21 14:10 [facility] [id number]) Out-Patient Physical Therapy Visit Information Visit Information Visit Type Treatment Note Visit Start Time 13:45 Visit Stop Time 14:30 Total Visit Minutes 45 Visit Number 6 PT-OP-B Current Condition Start: 04/13/21 13:39 Freq: Status: Active Protocol: Document 04/13/21 13:50 [facility] (Rec: 04/13/21 13:57 [facility] [id number]) Current Condition History of Current Condition History of Current Condition pt was in surgery 10 days ago and he did a iliostomy. He was at [facility]. He feels like his bag keeps breaking. He feels infected at the bag sight. He has been to [facility] multiple times and has a DR appt on . He has a hx of colon cancer and a 1/3 of his colon was removed. He reports a lot of pain in his back and in his pelvis. PT lives in [place]. PT-OP-C Subjective Start: 04/13/21 13:39 Freq: Status: Active Protocol: Document 06/08/21 13:56 [facility] (Rec: 06/08/21 14:10 [facility] [id number]) OP-PT Subjective Patient Comments Patient Comments pt notes he hasn't had his biopsy yet but a ultrasound is scheduled for the end of the month. he finds out about kidney cancer PT-OP-F Manual Assessment Start: 04/13/21 13:39 Freq: Status: Active Protocol: Document 04/13/21 13:45 [facility] (Rec: 04/14/21 09:37 [facility] [id number]) Manual Assessments Soft Tissue Assessment Soft Tissue Mobility Assessment pt is 10 days post op ileostomy with ileostomy bag, there are stiches still healing on the midline of his abdomen, some scar tissue present in the midline. There is a area still healing on the left side of the abdomen that was still showing bruising. Pt has scar tissue along the abdominal wall from previous colon surgeries. Scar tissue mobility was assessed gently PT-OP-J Posture/Palpation/Skin Start: 04/13/21 13:39 Freq: Status: Active Protocol: Document 04/13/21 13:45 [facility] (Rec: 04/14/21 09:37 [facility] [id number]) Posture Evaluation Position Standing Evaluation View Lateral L-Spine Posture Flexed Shoulder Posture (L) Rounded,(R) Rounded,(L) Forward,(R) Forward Pelvis Posture Posterior Tilted Comments Posture Comments pt is standing in a posterior pelvic tilt with gluteals tightened and guarded. Palpation Assessment Location gluteals Palpation Location gluteals and piriformis attachment to the sacrum Palpation Findings Soft Tissue Tightness,Spasm, Muscle Guarding Palpation Details tightness in the gluteals and posterior pelvic floor attachments to the sacrum, pt appears to be in a guarded position with the gluteals Skin Assessment Incisional Assessment Incision Appearance/Comments pt reports his bag seems to be coming lose when he is sittng in the car and bends over. He notes it spilled on him while he was driving and he was worried about skin infection. I did inspect his skin around the bag and it did look like his skin was irritated on the bottom portion of the bag. I brought in our wound director critical care who visually inspected the bag and gave the patient some skin prep to help decrease tissue irritation from the bag. He is to see wound care in [facility] on . PT-OP-K Range of Motion Start: 04/14/21 09:37 Freq: Status: Active Protocol: Document 04/13/21 13:45 [facility] (Rec: 04/14/21 09:40 [facility] [id number]) Hip Goniometric Range of Motion Hip Left Hip ROM WFL No Testing Position Supine Straight Leg Raise 40 External Rotation 10 Right Hip ROM WFL No Testing Position Supine Straight Leg Raise 40 External Rotation 10 Hip ROM Limitations Hip ROM Limitations Soft Tissue Tightness Comments tightness into hip ER bilaterally, piriformis tightness SLT limited to 40 degrees B with hamstring tightness PT-OP-Q Treatments Start: 04/13/21 13:39 Freq: Status: Active Protocol: Document 06/08/21 13:56 [facility] (Rec: 06/08/21 14:10 [facility] [id number]) Therapeutic Exercises Supine Exercises pelvic floor contract/relax Reps/Minutes x 10 reps Comments 28.3 average and max 54.1 uv diaphragmatic breathing Reps/Minutes x 5 min Neuro Re-Education Treatment Other Activities NMES for the pelvic floor Details NMES Reps/Duration 10 min Comments NMES was used to help with sensation of pelvic floor contractions and pt could feel the NMES at level 6 PT-OP-T Assessment and Plan Start: 04/13/21 13:39 Freq: Status: Active Protocol: Document 06/08/21 13:56 [facility] (Rec: 06/08/21 14:10 [facility] [id number]) Physical Therapy Assessment Goals 3 Impairment Pt lacks a home program to address pelvic and sacral/ coccyx pain Short Term Goal (STG) pt is educated on a HEP with stretches and self mobilizations to help reduce his pelvic, sacrum, and coccyx pain GOAL MET STG Duration 5 weeks 2 Impairment Pain at the sacral attachments and coccxy attachments of the gluteals and posterior pelvic floor rated 8/10 Short Term Goal (STG) Rayshawn is educated on stretches to help relax the posterior pelvic floor and gluteal muscles GOAL MET STG Duration 4 weeks Intermediate Goal (LTG) with manual therapy treatments and stretching Rayshawn reports a overall reduction in pain around the sacrum and coccyx Rayshawn is still experiencing the low back and sacral pain despite stretches. LTG Duration 12 weeks + 1 Impairment pelvic pain and history of rectal pain with bowel movements Corporate Safety Coordinator Goal (LTG) Rayshawn's goal is to relax his pelvic floor decreasing pain. He would like to have the ileostomy bag removed once his pelvic floor tone is relaxed to be successful with bowel movements Resting tone on EMG biofeedback went as low as 1.4 uv following stretches. Today with a increase in LBP his resting tone is elevated again. LTG Duration 12 weeks + Assessment Summary Assessment This was Sendy last scheduled visit in PT. He has been able to reduce his resting tone down to 1.4 uv on EMG biofeedback. His resting tone of the pelvic floor seems to increase with LBP. Today Rayshawn hadn't had much sleep last night or in past few days. His low back was more guarded and painful today. Resting tone was elevated to start at 7.8 uv. The past few sessions he has been much more relaxed. I have tried NMES with a rectal sensor and he has been able to feel the sensation at a level 6 of the NMES. Overall with stretches and breathing Rayshawn is able to reduce his guarded pelvic floor on EMG biofeedback. With LBP flare the resting tone is elevated and its much harder to relax. I am not sure at this point if the relaxation we were able to gain on the Biofeeback with transfer over to bowel movements. Rayshawn would like to see care for his low back. He changes insurance in June so he will wait until after then to pursue a referral for his low back. Physical Therapy Plan Discharge Physical Therapy Discharge Reasons No Longer Attending PT
== END 2021-06-16 09:42 ==
LOC: PHYS 13:45
PROVIDERS: Family Provider Family Medicine; PCP Family Medicine; Referring Provider Family Medicine; Visit Provider Family Medicine
DX: K56.41 Fecal impaction (principal)
CPT/HCPCS: 97110; 97112; 97162

== ENCOUNTER 2021-08-22 04:45 | Observation (INO) | payer MEDICARE, MEDICAID, SELFPAY ==
[2021-08-22] VITALS (15 sets, daily range): BP systolic 102–133; BP diastolic 59–86; PULSE 60–75; RESP 16; TEMP 36–36.3; O2SAT 94–100; BMI 18.3
--- NOTE | 2021-08-22 04:47 | ED.ABDPAIN ---
HPI - Abdominal Pain <Oscar Leo DO - Last Filed: 08/24/21 00:17> General Chief Complaint: Abdominal Pain Stated Complaint: ABD PAIN/BACK/NECK PAIN X2 DAYS Time Seen by Provider: 08/22/21 04:47 History of Present Illness HPI narrative: 65-year-old male former smoker with history of colon cancer, coronary artery disease, pacemaker, COPD presents with severe right lower chest and upper abdominal pain as well as left lower quadrant pain for the past few days. He is in the process of multiple workups and states that about 3 months ago he had a diverting ostomy for colon cancer and is currently in the process of being evaluated for a descending aneurysm in his abdomen as well as the possibility of metastasis to glands in his neck. He states he had the ostomy about [address] [facility]. He has had no change in the output. He denies any fever or chills and has no nausea or vomiting. She denies any dysuria, frequency or urgency. His pain is worse when he moves and improves with rest Related Data Home Medications Medication Instructions Recorded Confirmed albuterol sulfate 90 mcg/actuation 2 puff INHALATION Q4HR 08/22/21 08/22/21 aerosol inhaler (ProAir HFA) alfuzosin 10 mg tablet,extended 10 mg PO DAILY 08/22/21 08/22/21 release 24 hr (Uroxatral) apixaban 5 mg tablet (Eliquis) 5 mg PO BID 08/22/21 08/22/21 lansoprazole 30 mg delayed 30 mg PO DAILY 08/22/21 08/22/21 release,disintegrating tablet (Prevacid SoluTab) levothyroxine 175 mcg tablet 175 mcg PO DAILY 08/22/21 08/22/21 (Synthroid) lisinopril 2.5 mg tablet (Zestril) 2.5 mg PO DAILY 08/22/21 08/22/21 lubiprostone 24 mcg capsule 24 mcg PO BID 08/22/21 08/22/21 (Amitiza) methocarbamol 500 mg tablet 500 mg PO QID 08/22/21 08/22/21 metoprolol tartrate 25 mg tablet 12.5 mg PO BID 08/22/21 08/22/21 naloxone 4 mg/actuation nasal 1 spray INTRANASAL PRN 06/05/22 spray (Narcan) oxycodone 10 mg tablet 10 mg PO Q4-5H 08/22/21 08/22/21 Allergies Allergy/AdvReac Type Severity Reaction Status Date / Time gabapentin Allergy Severe Hallucinati Verified 02/09/21 09:37 ng nortriptyline Allergy Severe Chest Pain Verified 02/09/21 09:37 duloxetine [From Cymbalta] Allergy Intermediate Palpitation Verified 02/09/21 09:37 s pregabalin Allergy Intermediate VISION Verified 02/09/21 09:37 CHANGES Patient History <Oscar Leo DO - Last Filed: 08/24/21 00:17> Medical History Colon cancer Surgical History H/O abdominal surgery History of colon surgery History of hernia surgery History of testicular surgery History of thoracic surgery History of thyroid surgery Family History Mother Cancer Sister Thyroid cancer Grandmother Cancer Family/Other Cancer Social History household members: family Smoking Status: Former smoker Smoking Status: Former smoker alcohol intake frequency: 0-2 drinks per day Substance Use Type: marijuana Exam <Oscar Leo DO - Last Filed: 08/24/21 00:17> Narrative Exam Narrative: GENERAL: [65] year old patient appears stated age. Well-developed patient, in mild distress. HEAD: Atraumatic. Normocephalic. EYES: Pupils equal round and reactive. Extraocular motions intact. No scleral icterus. No injection or drainage. ENT: Nose without bleeding, purulent drainage. Throat without erythema, tonsillar hypertrophy or exudate. Airway patent. NECK: Trachea midline. Non tender CARDIOVASCULAR: Regular rate and rhythm without murmurs, gallops, or rubs. RESPIRATORY: Clear to auscultation. Breath sounds equal bilaterally. No wheezes, rales, or rhonchi. GASTROINTESTINAL: Abdomen soft, ostomy with liquid stool within the bag, tender to palpate right upper quadrant and left lower quadrant nondistended. Bowel sounds present in all quadrants EXTREMITIES: No edema or joint tenderness. BACK: Nontender without deformity or crepitance. No flank tenderness. NEURO: AOx3. SKIN: No rash or erythema of visible areas Initial Vital Signs Initial Vital Signs: Vital Signs Temperature 96.8 F L 08/22/21 04:56 Pulse Rate 63 08/22/21 04:56 Respiratory Rate 16 08/22/21 04:56 Blood Pressure 133/86 08/22/21 04:56 Pulse Oximetry 98 08/22/21 04:56 <Chato Chapman DO - Last Filed: 08/22/21 08:48> Initial Vital Signs Initial Vital Signs: Vital Signs Temperature 96.8 F L 08/22/21 04:56 Pulse Rate 63 08/22/21 04:56 Respiratory Rate 16 08/22/21 04:56 Blood Pressure 133/86 08/22/21 04:56 Pulse Oximetry 98 08/22/21 04:56 Course <Oscar Leo DO - Last Filed: 08/24/21 00:17> Orders Ordered: Discontinued Medications Acetaminophen (Acetaminophen 325 Mg Tablet) 650 mg PO Q6HR PRN PRN Reason: pain Last Admin: 08/22/21 12:13 Dose: 650 mg Documented by: BEATRICE Apixaban (Apixaban 5 Mg Tablet) 5 mg PO NOW ONE Stop: 08/22/21 11:33 Last Admin: 08/22/21 12:32 Dose: 5 mg Documented by: BEATRICE Baclofen (Baclofen 10 Mg Tablet) 10 mg PO NOW ONE Stop: 08/22/21 11:33 Last Admin: 08/22/21 12:32 Dose: 10 mg Documented by: BEATRICE Hydromorphone HCl (Hydromorphone 1 Mg Inj) 1 mg IV NOW ONE Stop: 08/22/21 06:35 Last Admin: 08/22/21 06:41 Dose: 1 mg Documented by: TONY Hydromorphone HCl (Hydromorphone 1 Mg Inj) 1 mg IV NOW ONE Stop: 08/22/21 08:45 Last Admin: 08/22/21 09:23 Dose: 1 mg Documented by: JONAS Sodium Chloride (Normal Saline 0.9%) 1,000 mls @ 1,000 mls/hr IV BOLUS ONE Stop: 08/22/21 06:53 Last Infusion: 08/22/21 07:53 Dose: 0 mls/hr Documented by: Admin: 08/22/21 06:02 Dose: 1,000 mls/hr Documented by: TONY Sodium Chloride (Normal Saline 0.9%) 1,000 mls @ 100 mls/hr IV CONT BERRY Last Admin: 08/22/21 12:22 Dose: 100 mls/hr Documented by: BEATRICE Levothyroxine Sodium (Levothyroxine 150 Mcg Tablet) 175 mcg PO NOW ONE Stop: 08/22/21 11:35 Last Admin: 08/22/21 12:33 Dose: 175 mcg Documented by: BEATRICE Lisinopril (Lisinopril 5 Mg Tablet) 2.5 mg PO NOW ONE Stop: 08/22/21 11:33 Last Admin: 08/22/21 12:15 Dose: 2.5 mg Documented by: BEATRICE Metoprolol Tartrate (Metoprolol Ir 25 Mg Tablet) 12.5 mg PO NOW ONE Stop: 08/22/21 11:33 Last Admin: 08/22/21 12:11 Dose: 12.5 mg Documented by: BEATRICE Naloxone HCl (Naloxone 0.4 Mg/Ml Vial) 0.2 mg IV Q2MIN PRN PRN Reason: Opiate Reversal Ondansetron HCl (Ondansetron 4 Mg/2 Ml Inj) 4 mg IV NOW ONE Stop: 08/22/21 06:35 Last Admin: 08/22/21 06:41 Dose: 4 mg Documented by: TONY Oxycodone HCl (Oxycodone Ir 5 Mg Tablet) 5 mg PO BID PRN PRN Reason: pain Last Admin: 08/22/21 12:12 Dose: 5 mg Documented by: BEATRICE Solifenacin (Solifenacin 5 Mg Tablet) 5 mg PO NOW ONE Stop: 08/22/21 11:36 Last Admin: 08/22/21 12:13 Dose: 5 mg Documented by: BEATRICE Vital Signs Vital signs: Vital Signs - 8 hr 08/22/21 04:56 08/22/21 05:17 08/22/21 05:30 Temperature 96.8 F L Pulse Rate 63 63 75 Respiratory Rate 16 Blood Pressure 133/86 Pulse Oximetry 98 94 96 08/22/21 05:31 08/22/21 06:00 08/22/21 06:01 Temperature Pulse Rate 61 60 60 Respiratory Rate Blood Pressure 133/79 112/59 L Pulse Oximetry 97 96 96 08/22/21 06:30 08/22/21 07:00 08/22/21 07:30 Temperature Pulse Rate 63 61 60 Respiratory Rate Blood Pressure 119/69 102/64 Pulse Oximetry 100 99 94 <Chato Chapman DO - Last Filed: 08/22/21 08:48> Orders Ordered: Discontinued Medications Acetaminophen (Acetaminophen 325 Mg Tablet) 650 mg PO Q6HR PRN PRN Reason: pain Last Admin: 08/22/21 12:13 Dose: 650 mg Documented by: BEATRICE Apixaban (Apixaban 5 Mg Tablet) 5 mg PO NOW ONE Stop: 08/22/21 11:33 Last Admin: 08/22/21 12:32 Dose: 5 mg Documented by: BEATRICE Baclofen (Baclofen 10 Mg Tablet) 10 mg PO NOW ONE Stop: 08/22/21 11:33 Last Admin: 08/22/21 12:32 Dose: 10 mg Documented by: BEATRICE Hydromorphone HCl (Hydromorphone 1 Mg Inj) 1 mg IV NOW ONE Stop: 08/22/21 06:35 Last Admin: 08/22/21 06:41 Dose: 1 mg Documented by: TONY Hydromorphone HCl (Hydromorphone 1 Mg Inj) 1 mg IV NOW ONE Stop: 08/22/21 08:45 Last Admin: 08/22/21 09:23 Dose: 1 mg Documented by: JONAS Sodium Chloride (Normal Saline 0.9%) 1,000 mls @ 1,000 mls/hr IV BOLUS ONE Stop: 08/22/21 06:53 Last Infusion: 08/22/21 07:53 Dose: 0 mls/hr Documented by: Admin: 08/22/21 06:02 Dose: 1,000 mls/hr Documented by: TONY Sodium Chloride (Normal Saline 0.9%) 1,000 mls @ 100 mls/hr IV CONT BERRY Last Admin: 08/22/21 12:22 Dose: 100 mls/hr Documented by: BEATRICE Levothyroxine Sodium (Levothyroxine 150 Mcg Tablet) 175 mcg PO NOW ONE Stop: 08/22/21 11:35 Last Admin: 08/22/21 12:33 Dose: 175 mcg Documented by: BEATRICE Lisinopril (Lisinopril 5 Mg Tablet) 2.5 mg PO NOW ONE Stop: 08/22/21 11:33 Last Admin: 08/22/21 12:15 Dose: 2.5 mg Documented by: BEATRICE Metoprolol Tartrate (Metoprolol Ir 25 Mg Tablet) 12.5 mg PO NOW ONE Stop: 08/22/21 11:33 Last Admin: 08/22/21 12:11 Dose: 12.5 mg Documented by: BEATRICE Naloxone HCl (Naloxone 0.4 Mg/Ml Vial) 0.2 mg IV Q2MIN PRN PRN Reason: Opiate Reversal Ondansetron HCl (Ondansetron 4 Mg/2 Ml Inj) 4 mg IV NOW ONE Stop: 08/22/21 06:35 Last Admin: 08/22/21 06:41 Dose: 4 mg Documented by: TONY Oxycodone HCl (Oxycodone Ir 5 Mg Tablet) 5 mg PO BID PRN PRN Reason: pain Last Admin: 08/22/21 12:12 Dose: 5 mg Documented by: BEATRICE Solifenacin (Solifenacin 5 Mg Tablet) 5 mg PO NOW ONE Stop: 08/22/21 11:36 Last Admin: 08/22/21 12:13 Dose: 5 mg Documented by: BEATRICE Vital Signs Vital signs: Vital Signs - 8 hr 08/22/21 04:56 08/22/21 05:17 08/22/21 05:30 Temperature 96.8 F L Pulse Rate 63 63 75 Respiratory Rate 16 Blood Pressure 133/86 Pulse Oximetry 98 94 96 08/22/21 05:31 08/22/21 06:00 08/22/21 06:01 Temperature Pulse Rate 61 60 60 Respiratory Rate Blood Pressure 133/79 112/59 L Pulse Oximetry 97 96 96 08/22/21 06:30 08/22/21 07:00 08/22/21 07:30 Temperature Pulse Rate 63 61 60 Respiratory Rate Blood Pressure 119/69 102/64 Pulse Oximetry 100 99 94 MDM - Abdominal Pain <Oscar Leo DO - Last Filed: 08/24/21 00:17> Lab Data Result diagrams: 08/22/21 06:00 08/22/21 06:00 Labs: Lab Results 0608/22/21 08/22/21 Range/Units 06:00 06:00 07:00 WBC 8.6 (4.5-11.0) X10^3/uL RBC 4.78 (4.5-5.9) X10^6/uL Hgb 14.3 (13.5-17.5) g/dL Hct 41.9 (41-53) % MCV 87.7 (80-100) fL MCH 29.9 (26-34) PG MCHC 34.1 (30-36) % RDW 14.0 (11.6-14.8) % Plt Count 256 (150-400) X10^3/uL Neut % (Auto) 58.9 (50-75) % Lymph % (Auto) 27.6 (25-40) % [place] % (Auto) 5.5 (3-14) % Eos % (Auto) 6.9 H (2-4) % Baso % (Auto) 1.1 (0-2) % Neut # (Auto) 5100 (6037-5735) /uL Lymph # (Auto) 2400 (2503-2224) /uL [place] # (Auto) 500 (0-900) /uL Eos # (Auto) 600 H (0-450) /uL Baso # (Auto) 100 (0-100) /uL Sodium 139 (137-145) mmol/L Potassium 3.8 (3.4-5.1) mmol/L Chloride 105 (98-107) mmol/L Carbon Dioxide 29 (22-32) mmol/L BUN 10 (9-20) mg/dL Creatinine 1.03 (0.66-1.25) mg/dL Estimated GFR > 60 (>60) mL/min BUN/Creatinine Ratio 9.7 (6-22) Glucose 85 (80-110) mg/dL Calcium 9.0 (8.4-10.2) mg/dL Total Bilirubin 0.2 (0.2-1.3) mg/dL AST 24 (17-59) IU/L ALT 12 (<50) IU/L Alkaline Phosphatase 85 (38-126) U/L Total Protein 6.8 (6.3-8.2) g/dL Albumin 4.0 (3.5-5.0) g/dL Globulin 2.8 (1.7-4.1) g/dL Albumin/Globulin Ratio 1.4 (1.0-2.8) Lipase 94 (23-300) U/L Urine RBC None seen (0-5/HPF) Urine WBC 0-1/hpf (0-5/HPF) Urine Bacteria None seen (None) Hyaline Casts 0-1/lpf (None) Urine Mucus 2+ H (Negative) Ur Culture Indicated? Cult not indicated Point of care testing: Urine Dip Bedside Urine Glucose Negative Bedside Urine Bilirubin - Negative Bedside Urine Ketone - Negative Urine Specific [place] 1.015 Bedside Urine Occult Blood +/- Bedside Urine pH 6.0 Bedside Urine Protein - Negative Bedside Urine Urobilinogen - Negative Bedside Urine Nitrite - Negative Bedside Urine Leukocytes - Negative Esterase <Chato Chapman DO - Last Filed: 08/22/21 08:48> Lab Data Labs: Lab Results 08/22/21 08/22/21 08/22/21 Range/Units 06:00 06:00 07:00 WBC 8.6 (4.5-11.0) X10^3/uL RBC 4.78 (4.5-5.9) X10^6/uL Hgb 14.3 (13.5-17.5) g/dL Hct 41.9 (41-53) % MCV 87.7 (80-100) fL MCH 29.9 (26-34) PG MCHC 34.1 (30-36) % RDW 14.0 (11.6-14.8) % Plt Count 256 (150-400) X10^3/uL Neut % (Auto) 58.9 (50-75) % Lymph % (Auto) 27.6 (25-40) % [place] % (Auto) 5.5 (3-14) % Eos % (Auto) 6.9 H (2-4) % Baso % (Auto) 1.1 (0-2) % Neut # (Auto) 5100 (4863-3390) /uL Lymph # (Auto) 2400 (2991-5096) /uL [place] # (Auto) 500 (0-900) /uL Eos # (Auto) 600 H (0-450) /uL Baso # (Auto) 100 (0-100) /uL Sodium 139 (137-145) mmol/L Potassium 3.8 (3.4-5.1) mmol/L Chloride 105 (98-107) mmol/L Carbon Dioxide 29 (22-32) mmol/L BUN 10 (9-20) mg/dL Creatinine 1.03 (0.66-1.25) mg/dL Estimated GFR > 60 (>60) mL/min BUN/Creatinine Ratio 9.7 (6-22) Glucose 85 (80-110) mg/dL Calcium 9.0 (8.4-10.2) mg/dL Total Bilirubin 0.2 (0.2-1.3) mg/dL AST 24 (17-59) IU/L ALT 12 (<50) IU/L Alkaline Phosphatase 85 (38-126) U/L Total Protein 6.8 (6.3-8.2) g/dL Albumin 4.0 (3.5-5.0) g/dL Globulin 2.8 (1.7-4.1) g/dL Albumin/Globulin Ratio 1.4 (1.0-2.8) Lipase 94 (23-300) U/L Urine RBC None seen (0-5/HPF) Urine WBC 0-1/hpf (0-5/HPF) Urine Bacteria None seen (None) Hyaline Casts 0-1/lpf (None) Urine Mucus 2+ H (Negative) Ur Culture Indicated? Cult not indicated Point of care testing: Urine Dip Bedside Urine Glucose Negative Bedside Urine Bilirubin - Negative Bedside Urine Ketone - Negative Urine Specific [place] 1.015 Bedside Urine Occult Blood +/- Bedside Urine pH 6.0 Bedside Urine Protein - Negative Bedside Urine Urobilinogen - Negative Bedside Urine Nitrite - Negative Bedside Urine Leukocytes - Negative Esterase Imaging Data CT scan - abdomen/pelvis: Radiologist's Impression: Mural thickening involving the transverse and proximal descending colon. Findings are suggestive of segmental colitis. There is no associated bowel perforation or abscess. Fluid-filled slightly dilated small bowel loops are seen within the lower pelvis. There is no discrete point of transition in the findings may be related to focal ileus. Follow-up should be considered to exclude possibility of a earlier partial small bowel obstruction Increasing size of abdominal aortic aneurysm which now has a maximal diameter of 4.5 cm. Preliminary radiology interpretation MDM Narrative Medical decision making narrative: Dr chapman: Received turned over. Reviewed patient's history and physical exam and radiologic studies up to this point. Performed my own independent evaluation. Patient does not have a leukocytosis. Kidney function is unremarkable. Abdominal tenderness on left mid abdomen and also right mid abdomen. He is still having output through his ostomy. CT scan concerning for colitis and also dilated small loops of bowel which were reported is either ileus or early partial small-bowel obstruction. Given his prior surgical history patient does require admission to the hospital for further evaluation and treatment. Discussed the case with Dr. Mckinney on-call with General surgery who will evaluate the patient upon admission to the hospital. I did discuss the case with Dr. Gu with Internal Medicine who will admit for further evaluation and treatment. I did discuss the findings with the patient. We did discuss the need for admission. He expressed understanding and agreement. Discharge Plan Departure Patient Disposition: Admitted as Observation Clinical Impression: Colitis, Ileus Admit Date/Time: 08/22/21 09:13 Admit Provider: Palmer Gu
[2021-08-22] MEDS: SODIUM CHLORIDE 0.9% 1,000 ML 1000 ML IV (06:02)
[2021-08-22 06:10] LABS: Add Manual Diff / Slide Review NO; Basophils Absolute Auto 100 /uL (0-100); Basophils Percent Auto 1.1 % (0-2); Eosinophils Absolute Auto 600 /uL (0-450); Eosinophils Percent Auto 6.9 % (2-4); Hematocrit 41.9 % (41-53); Hemoglobin 14.3 g/dL (13.5-17.5); Lymphocytes Absolute Auto 2400 /uL (1100-4500); Lymphocytes Percent Auto 27.6 % (25-40); Mean Corpuscular HGB Conc 34.1 % (30-36); Mean Corpuscular Hemoglobin 29.9 PG (26-34); Mean Corpuscular Volume 87.7 fL (80-100); Monocytes Absolute Auto 500 /uL (0-900); Monocytes Percent Auto 5.5 % (3-14); Neutrophils Absolute Auto 5100 /uL (1500-7000); Neutrophils Percent Auto 58.9 % (50-75); Platelet Count 256 X10^3/uL (150-400); Red Blood Cell Count 4.78 X10^6/uL (4.5-5.9); White Blood Cell Count 8.6 X10^3/uL (4.5-11.0)
[2021-08-22 06:22] LABS: Alanine Aminotransferase 12 IU/L (<50); Albumin Globulin Ratio 1.4 (1.0-2.8); Alkaline Phosphatase 85 U/L (38-126); Aspartate Aminotransferase 24 IU/L (17-59); BUN Creatinine Ratio 9.7 (6-22); Bilirubin Total 0.2 mg/dL (0.2-1.3); Blood Urea Nitrogen 10 mg/dL (9-20); Carbon Dioxide 29 mmol/L (22-32); Chloride 105 mmol/L (98-107); Estimated Glomerular Filt Rate > 60 mL/min (>60); Globulin 2.8 g/dL (1.7-4.1); Glucose 85 mg/dL (80-110); HEMOLYSIS < 15 (0-50); Lipase 94 U/L (23-300); Potassium 3.8 mmol/L (3.4-5.1); Sodium 139 mmol/L (137-145); Total Protein 6.8 g/dL (6.3-8.2)
--- NOTE | 2021-08-22 06:33 | DI.CT.S_ITS ---
PROCEDURE: CT CHEST ABD PEL W CON INDICATIONS: severe upper abd/lower chest and Left groin pain, recent ost TECHNIQUE: After the administration of intravenous contrast, 5 mm thick sections acquired from the lung apices to the symphysis. 5 mm coronal and sagittal reformats were performed, with additional 7 mm MIP reformats through the lungs. For radiation dose reduction, the following was used: automated exposure control, adjustment of mA and/or kV according to patient size. COMPARISON: [facility], CT, CT ABDOMEN RENAL PROTOCOL, 04/03/2020, 14:43. [facility], CT, CT ABDOMEN PELVIS WITH CONTRAST, 09/05/2020, 16:27. [facility], CT, CT ABDOMEN PELVIS W CON, 02/16/2021, 3:53. [facility], CT, CT ABDOMEN PELVIS WITH CONTRAST, 02/22/2021, 23:08. FINDINGS: Image quality: Excellent. CHEST: Lungs and pleura: No acute airspace opacities. No pleural effusions or pneumothorax. Central and peripheral airways appear patent and normal in caliber. There is a least moderate predominantly centrilobular emphysema noted throughout the lungs worse at the lung apices. No suspicious nodularity. Mediastinum: Heart size is normal. No pericardial effusion. No mediastinal or hilar adenopathy by size criteria. Pulmonary arteries are normal in size. There is no central pulmonary embolus. Mild dilation of the ascending aorta measuring 4.2 centimeters. No evidence of dissection. Esophagus is normal in caliber. No hiatal hernia. Chest wall: No axillary or supraclavicular adenopathy by size criteria. Thyroid gland is diminutive in appearance versus surgically resected. There is trace thyroid tissue on the left with dystrophic calcification. ABDOMEN: Solid organs: Liver is normal in size and enhancement. Multiple diffuse hypodensity is again noted most are fluid density and most consistent with simple cysts. multiple lesions are too small to further characterize. Gallbladder unremarkable. Biliary system is non dilated. Pancreas enhances normally. Dilation of the pancreatic duct slightly increased in size from prior exams. This measures up to 9 millimeters within the head proximal body and 5 millimeters within the distal body. No suspicious enhancing mass. This tapers normally. Spleen is normal in size and enhancement. No adrenal nodules. No significant change in size or appearance of previously noted left upper pole hypodense mass measuring 1.8 centimeters on today's examination. Additional simple cysts are noted within the kidneys. No hydronephrosis. Ureters are normal in course and caliber. Peritoneum and bowel: Postsurgical changes of sigmoidectomy ostomy is noted along the right mid abdomen. No evidence of obstruction. No acute wall thickening or surrounding inflammation. Nodes and vessels: No retroperitoneal or mesenteric adenopathy by size criteria. Stable dilation of the aorta which starts at the level of the renal arteries. This measures 4.0 x 3.7 centimeters on today's examination (2; 74) which has minimally increased from 04/03/2020 where it measured 3.7 x 3.3 cm by my repeat measurements. This however measured 4.0 x 3.[address] on most recent CT dated 02/22/2021 on my repeat measurements. There is approximately 25 percent stenosis at the level of the aneurysm with hypodense plaque. Diffuse vascular calcifications noted throughout the abdominal and pelvic vasculature. Miscellaneous: No ventral hernias. PELVIS: Genitourinary: Bladder wall thickness is normal. Stable prostatomegaly. Miscellaneous: No inguinal hernias or adenopathy. Bones: Age-appropriate degenerative changes without acute osseous abnormality. No suspicious bony lesions. No vertebral body compression fractures. IMPRESSION: Postsurgical changes of sigmoidectomy with ostomy in the right upper abdomen. No evidence of an acute abnormality. Stable abdominal aortic aneurysm measuring 4.0 x 3.7 centimeters on today's examination. This is unchanged from most recent CT, however mildly progressed from CT kidneys dated 04/03/2020 wearing it measured 3.7 x 3.3 centimeters on my repeat measurements. Mild dilation of the ascending aorta measuring 4.2 centimeters. Stable left renal mass measuring 1.8 centimeters concerning for renal cell carcinoma. Increased dilation of the pancreatic duct without focal dilation or suspicious enhancement. Consider nonemergent MRI for further evaluation. Additional chronic findings as above. Dictated by: Dylan Rodriguez D.O. on 08/22/2021 at 8:02 Approved by: Dylan Rodriguez D.O. on 08/22/2021 at 8:33
[2021-08-22] MEDS: HYDROMORPHONE 1 MG INJ IV ×2 (06:41→09:23)
[2021-08-22] MEDS: ONDANSETRON 4 MG/2 ML INJ IV (06:41)
[2021-08-22 08:52] LABS: RBC Urine None Seen (0-5/HPF); WBC Urine 0-1/HPF (0-5/HPF)
[2021-08-22 08:53] LABS: Bacteria Urine None Seen; Culture Indicated Urine Cult Not Indicated; Hyaline Casts Urine 0-1/LPF; Mucus Urine 2+ (Negative)
--- NOTE | 2021-08-22 11:51 | PM.HP.1 ---
History of Present Illness History of Present Illness Date Patient Seen: 08/22/21 Time Patient Seen: 11:15 Chief complaint: ABD PAIN/BACK/NECK PAIN X2 DAYS Narrative: 65-year-old male former smoker with remote history of colon cancer stage III, thyroid cancer status post resection coronary artery disease, atrial fibrillation, on chronic anticoagulation, pacemaker, abdominal aneurysm, COPD who has been mainly followed at [facility] presented to ED with complaints of worsening right lower quadrant/groin pain over the past 3-4 days. He denies any fever, chills, nausea, vomiting. Denies any decrease in output from his ostomy. Patient states he has chronic pain in the left groin which has been worse over the past few weeks and has been worked up by his providers. Not clear if there was any definitive diagnosis. He states that over the past 3-4 days he has had new pain in the right groin or right lower abdomen area. He states pain is worse with deep breaths. He also has chronic discomfort in the scrotum where he states he has a cyst on the right testicle but the urologist has not wanted to operate on it. He also has chronic pain in the neck and back. It sounds like he had a right neck lymph node biopsy recently which was inconclusive. In terms of his colon CA he had resection 25 years ago. He has had regular surveillance colonoscopy with removal of precancerous/cancerous polyps. Than 3 years ago he had a partial colectomy at [facility]. Three months ago he had a diverting ostomy which patient states was due to severe problems with rectal evacuation. He also has known small left renal mass suspicious for renal cell carcinoma and being addressed by his urologist. Vitals and blood work in the ED were unremarkable. He had CT scan which was initially read by night radiologist as possible SBO without transition point and also some colitis appearance. The final report read by our radiologist did not indicate any acute abnormalities. ED physician requested hospital admission for further evaluation and observation. Patient History Medical History Colon cancer Surgical History H/O abdominal surgery History of colon surgery History of hernia surgery History of testicular surgery History of thoracic surgery History of thyroid surgery Family & Social History Family History Mother Cancer Sister Thyroid cancer Grandmother Cancer Family/Other Cancer Social History: household members family Prior Living Arrangements House Safety & Behavioral: Feels Safe in Current Yes Environment Been Physically Hurt or No Threatened By a Person Tobacco & Substance use: Smoking Status Former smoker alcohol intake frequency 0-2 drinks per day Substance Use Type marijuana Meds Home Medications and Allergies Allergies Allergy/AdvReac Type Severity Reaction Status Date / Time gabapentin Allergy Severe Hallucinati Verified 02/09/21 09:37 ng nortriptyline Allergy Severe Chest Pain Verified 02/09/21 09:37 duloxetine [From Cymbalta] Allergy Intermediate Palpitation Verified 02/09/21 09:37 s pregabalin Allergy Intermediate VISION Verified 02/09/21 09:37 CHANGES Review of Systems Review of Systems Narrative: As noted above otherwise negative Exam Vital Signs (past 8 hours): - 08/22/21 04:56 08/22/21 05:17 08/22/21 05:30 Temperature 96.8 F L Pulse Rate 63 63 75 Respiratory Rate 16 Blood Pressure 133/86 Pulse Oximetry 98 94 96 08/22/21 05:31 08/22/21 06:00 08/22/21 06:01 Temperature Pulse Rate 61 60 60 Respiratory Rate Blood Pressure 133/79 112/59 L Pulse Oximetry 97 96 96 08/22/21 06:30 08/22/21 07:00 08/22/21 07:30 Temperature Pulse Rate 63 61 60 Respiratory Rate Blood Pressure 119/69 102/64 Pulse Oximetry 100 99 94 08/22/21 08:02 08/22/21 08:03 08/22/21 08:30 Temperature Pulse Rate 60 60 60 Respiratory Rate Blood Pressure 120/75 Pulse Oximetry 96 98 97 08/22/21 09:00 08/22/21 09:27 Temperature Pulse Rate 60 Respiratory Rate Blood Pressure Pulse Oximetry 94 96 Oxygen Delivery Method Room Air Narrative Exam Narrative: General: Patient is alert and appearing comfortable Neck: No obvious lymphadenopathy or neck mass Lungs: Clear to auscultation Heart: Regular rate and rhythm without murmur Abdomen: Healed midline surgical scar, no abdominal mass, no HSM, there is diverting ostomy with normal brown fluid in ostomy bag, no tenderness or guarding in abdomen Genitourinary: Tenderness noted in bilateral groin areas, no inguinal enlarged lymph nodes or mass, no scrotal swelling, has tenderness of right testicle but no palpable cyst or mass Extremities: Warm and nonedematous Neurological: Speech fluent, affect calm but concerned Objective Labs Result Diagrams: 08/22/21 06:00 08/22/21 06:00 Labs: Laboratory Results - last 24 hr 08/22/21 08/22/21 08/22/21 06:00 06:00 07:00 WBC 8.6 RBC 4.78 Hgb 14.3 Hct 41.9 MCV 87.7 MCH 29.9 MCHC 34.1 RDW 14.0 Plt Count 256 Neut % (Auto) 58.9 Lymph % (Auto) 27.6 [place] % (Auto) 5.5 Eos % (Auto) 6.9 H Baso % (Auto) 1.1 Neut # (Auto) 5100 Lymph # (Auto) 2400 [place] # (Auto) 500 Eos # (Auto) 600 H Baso # (Auto) 100 Sodium 139 Potassium 3.8 Chloride 105 Carbon Dioxide 29 BUN 10 Creatinine 1.03 Estimated GFR > 60 BUN/Creatinine Ratio 9.7 Glucose 85 Calcium 9.0 Total Bilirubin 0.2 AST 24 ALT 12 Alkaline Phosphatase 85 Total Protein 6.8 Albumin 4.0 Globulin 2.8 Albumin/Globulin Ratio 1.4 Lipase 94 Urine RBC None seen Urine WBC 0-1/hpf Urine Bacteria None seen Hyaline Casts 0-1/lpf Urine Mucus 2+ H Ur Culture Indicated? Cult not indicated Assessment & Plan Assessment & Plan narrative: This is a patient with complicated medical history as outlined above presenting with right abdominal/groin pain. He has normal vitals. Exam is underwhelming. Blood work is normal. CT scan is unremarkable for acute findings. He does have known left renal mass followed by Urology and a abdominal aneurysm followed as well by his research center partner. There is no indication of SBO or infection anywhere. Dr. Mckinney also reviewed CT imaging himself and does not see anything surgical or otherwise concerning. Patient is stable to discharge home and follow up with his regular providers. This is a same-day admission and discharge. Time Spent With Patient Critical Care time: I spent a total of [] minutes of critical care time on this patient's care today; this time is exclusive of procedural time. Quality VTE Deep Vein Thrombosis/Pulmonary Embolism Present on Admission: No
[2021-08-22] MEDS: METOPROLOL IR 25 MG TABLET 12.5 MG PO (12:11)
[2021-08-22] MEDS: OXYCODONE IR 5 MG TABLET PO (12:12)
[2021-08-22] MEDS: SOLIFENACIN 5 MG TABLET PO (12:13)
[2021-08-22] MEDS: ACETAMINOPHEN 325 MG TABLET 650 MG PO (12:13)
[2021-08-22] MEDS: lisinopriL 5 MG TABLET 2.5 MG PO (12:15)
[2021-08-22] MEDS: SODIUM CHLORIDE 0.9% 1,000 ML 100 ML IV (12:22)
[2021-08-22] MEDS: APIXABAN 5 MG TABLET PO (12:32)
[2021-08-22] MEDS: BACLOFEN 10 MG TABLET PO (12:32)
[2021-08-22] MEDS: LEVOTHYROXINE 150 MCG TABLET 175 MCG PO (12:33)
--- NOTE | 2021-08-22 15:00 | PC.NURSE ---
1000: admit to floor from ED via stretcher. dx: r/o SBO, hx of colon CA/ ABD pain, iliostomy 3 months ago. patient is a/o, voices needs. ind w/ mobility and ADLs. reports right sided lower abdominal pain, unchanged w/ movement or rest. oxycodone 5mg given along w/ other meds he missed this AM. med rec done, IVF initiated. NPO status changed to regular diet. patient concerned that if he isnt NPO, surgery wont happen, and he wants to go home. Dr Gu wrote d/c orders. d/c paperwork reviewed w/ patient, he states he has no questions, left floor via w/c. left facility via private vehicle that he drove himself a few hours ago.
== END 2021-08-22 15:00 | disposition home or self-care (01) ==
LOC: ED 08:44 → AC 09:13
PROVIDERS: Emergency Medicine; Admitting Provider Internal Medicine; Emergency Provider Emergency Medicine; Family Provider Family Medicine; PCP Family Medicine; Referring Provider Emergency Medicine; Visit Provider Internal Medicine
DX: R10.10 Upper abdominal pain, unspecified (principal); R07.9 Chest pain, unspecified; I71.4 Abdominal aortic aneurysm, without rupture; Z85.038 Personal history of other malignant neoplasm of large intestine; I25.10 Atherosclerotic heart disease of native coronary artery without angina pectoris; J44.9 Chronic obstructive pulmonary disease, unspecified; Z95.0 Presence of cardiac pacemaker; Z93.3 Colostomy status; Z79.01 Long term (current) use of anticoagulants
CPT/HCPCS: 36415; 71260; 74177; 80053; 81003; 81015; 83690; 85025; 96361; 96374; 96375; 96376; 99284; G0378; J1170; J2405

== ENCOUNTER → 2021-09-27 11:00 | Outpatient (CLI) | payer MEDICARE, MEDICAID, SELFPAY | PROVIDERS: Family Provider Family Medicine; PCP Family Medicine; Referring Provider Nurse Practitioner Family; Visit Provider Nurse Practitioner Family | DX: Z53.20 Procedure and treatment not carried out because of patient's decision for unspecified reasons (principal) ==

== ENCOUNTER → 2021-10-28 15:12 | Outpatient (CLI) | payer MEDICARE, MEDICAID, SELFPAY ==
[2021-08-22 10:02] VITALS: BMI 18.3
[2021-10-28 17:12] LABS: BUN Creatinine Ratio 8.5 (6-22); Blood Urea Nitrogen 9 mg/dL (9-20); Calcium 8.8 mg/dL (8.4-10.2); Carbon Dioxide 30 mmol/L (22-32); Chloride 105 mmol/L (98-107); Estimated Glomerular Filt Rate > 60 mL/min (>60); Glucose 72 mg/dL (80-110); HEMOLYSIS 22 (0-50); Potassium 3.9 mmol/L (3.4-5.1); Sodium 138 mmol/L (137-145)
[2021-10-28 17:43] LABS: Prostate Specific Antigen 3.36 ng/mL (0.10-4.00)
== END ==
PROVIDERS: Family Provider Family Medicine; PCP Family Medicine; Referring Provider Specialist; Visit Provider Specialist
DX: N40.0 Benign prostatic hyperplasia without lower urinary tract symptoms (principal); N28.89 Other specified disorders of kidney and ureter
CPT/HCPCS: 36415; 80048; 84153

== ENCOUNTER → 2021-11-09 12:48 | Outpatient (CLI) | payer MEDICARE, MEDICAID, SELFPAY ==
[2021-08-22 10:02] VITALS: BMI 18.3
--- NOTE | 2021-11-09 12:50 | DI.CT.S_ITS ---
PROCEDURE: CT IVP A/P W/WO INDICATIONS: left renal mass TECHNIQUE: Optional 5 mm thick noncontrast images acquired from the diaphragm to the symphysis pubis. After the administration of intravenous contrast, 5 mm thick images acquired from the diaphragm to the symphysis pubis after a 10-minute delay. 2 mm thick coronal and sagittal reformats were then performed of the kidneys and ureters. For radiation dose reduction, the following was used: automated exposure control, adjustment of mA and/or kV according to patient size. COMPARISON: [facility], CT, CT ABDOMEN PELVIS WITH CONTRAST, 02/22/2021, 23:08. [facility], CT, CT CHEST ABD PEL W CON, 08/22/2021, 6:37. FINDINGS: Image quality: Excellent. Lung bases: Lung bases are clear. Heart size is normal. Urinary system: Both kidneys are normal in size, without hydronephrosis or nephrolithiasis on pre-contrast images. No perinephric fat stranding. There is normal bilateral renal enhancement. An exophytic low-density lesion is present on the noncontrast study within the upper pole of the left kidney which measures 2.0 cm in diameter and demonstrates 6.6 Hounsfield units in density. On the postcontrast image, this lesion demonstrates 48-66 Hounsfield units in density suggesting contrast enhancement (series 3/image 51). This lesion measured 1.7 cm in diameter on the comparison CT dated February 22, 2021. Nonenhancing low-density cortical cystic lesions are also visualized bilaterally. Renal calyces appear normal in morphology when filled with contrast. Opacified portions of both ureters demonstrate normal caliber. Bladder wall thickness is normal. No calcified bladder stones. The prostate has an enlarged, nodular appearance. Other solid organs: Multiple low-density cystic lesions are visualized within the liver suggesting the presence of simple hepatic cysts. Gallbladder unremarkable . Biliary system is non dilated. Pancreas enhances normally. Spleen is normal in size and enhancement. No adrenal nodules. Peritoneum and bowel: Bowel loops demonstrate normal wall thickness and caliber. Patient is status post left partial hemicolectomy with right colostomy. No free fluid or air. Nodes and vessels: No retroperitoneal or mesenteric adenopathy by size criteria. Inferior vena cava is normal in size. Saccular aneurysmal dilatation of the abdominal aorta is redemonstrated which measures up to 4.4 cm in lateral diameter. Atheromatous calcifications are scattered throughout the abdominal aorta. Abdominal wall: No ventral hernias. Pelvis: No pathologic free pelvic fluid. No inguinal hernias or adenopathy. Bones: No suspicious bony lesions. No vertebral body compression fractures. IMPRESSION: 1. Increased size of the enhancing cystic lesion within the upper pole of the left kidney when compared with the study dated February 22, 2021 suggesting slow growing renal cell carcinoma. 2. Abdominal aortic aneurysm. Vascular surgery consultation recommended for evaluation and surveillance. Dictated by: Vanessa Lazaro M.D. on 11/09/2021 at 15:06 Approved by: Vanessa Lazaro M.D. on 11/09/2021 at 15:17
--- NOTE | 2021-11-09 12:50 | DI.US.S_ITS ---
PROCEDURE: US SCROTUM INDICATIONS: SCROTAL PAIN. HISTORY OF EPIDIDYMAL CYST. TECHNIQUE: Real-time scanning was performed of the scrotum and testicles, with image documentation. Color and pulse Doppler interrogation was performed of both testicles. COMPARISON: [facility], US, US TESTICULAR SCROTUM + DOPPLER, 08/15/2019, 14:47. [facility], US, US SCROTUM, 08/18/2018, 20:17. FINDINGS: Right: Testicle is normal in size at 4.5 x 2.4 x 1.2 cm, and slightly heterogeneous in echotexture. There are multiple rete testis cysts the largest of which measures 1.9 x 1.7 x 1.0 mm. There is a 3 mm region of what appears to be epididymal tissue at the expected head of the epididymis. A 2 mm cyst is present. No hydrocele or varicoceles. Overlying scrotal skin is normal in thickness. A cluster of cysts is visualized within the inferior right scrotum which measures 2.8 x 1.9 x 1.7 cm. This is similar in appearance to the comparison ultrasound dated August 15, 2019. Left: Testicle is normal in size at 4.1 x 2.8 x 1.9 cm, and homogeneous in echotexture. Epididymis is normal in overall size and morphology. There is a 6 mm left epididymal head cyst. No varicocele. There is a small left hydrocele which has a loculated appearance. Overlying scrotal skin is normal in thickness. Doppler: Color and pulse Doppler demonstrate normal and symmetric arterial flow in both testicles. IMPRESSION: 1. Sonographic findings suggesting residual right-sided epididymal tissue. 2. Cluster of anechoic cysts within the inferior right scrotum unchanged from the study dated August 15, 2019. 3. Small left hydrocele. Dictated by: Vanessa Lazaro M.D. on 11/09/2021 at 15:59 Approved by: Vanessa Lazaro M.D. on 11/09/2021 at 16:09
== END ==
PROVIDERS: Family Provider Family Medicine; PCP Family Medicine; Referring Provider Specialist; Visit Provider Specialist
DX: N50.3 Cyst of epididymis (principal); N28.89 Other specified disorders of kidney and ureter; I71.4 Abdominal aortic aneurysm, without rupture; N50.82 Scrotal pain; N43.3 Hydrocele, unspecified
CPT/HCPCS: 74178; 76870; Q9967

== ENCOUNTER 2022-01-02 22:18 | Emergency (ER) | payer MEDICARE, MEDICAID, SELFPAY ==
[2021-08-22 10:02] VITALS: BMI 18.3
[2022-01-02 22:27] VITALS: BP 155/88; PULSE 78; RESP 22; TEMP 36.6; O2SAT 98
--- NOTE | 2022-01-02 22:55 | DI.CT.S_ITS ---
PROCEDURE: CT KIDNEY URETER BLADDER (KUB) INDICATIONS: flank pain, testicular pain, trouble urinating TECHNIQUE: Axial sections were acquired from the lung bases to the pubic symphysis. Coronal and sagittal reformats were performed. For radiation dose reduction, the following was used: automated exposure control, adjustment of mA and/or kV according to patient size. COMPARISON: [facility], CT, CT IVP A/P W/WO, 11/09/2021, 13:26. FINDINGS: Image quality: Excellent. Lung bases: Unremarkable. Heart: Pacemaker leads are seen. Heart size is mildly enlarged, no pericardial effusion. URINARY: Right Kidney: No stones or hydronephrosis. Right Ureter: No hydroureter. Left Kidney: Faint 1-2 mm nonobstructing stones are seen in left kidney. No hydronephrosis. 2.4 cm cyst in midpole of left kidney is seen unchanged from prior studies. Patient's known exophytic and enhancing lesion involving upper pole of left kidney is again seen unchanged from 11/09/2021 study. Left Ureter: No hydroureter. Bladder: Diffuse bladder wall thickening is noted, no discrete bladder wall mass. Enlarged prostate gland is seen with mass effect on floor of urinary bladder. No calcified bladder stones. ABDOMEN: Liver: Liver is normal in size. Multiple well-circumscribed hypodense areas are again seen scattered in liver parenchyma better evaluated on previous IVP study and are unchanged in size and appearance suggestive of numerous hepatic cysts. Gallbladder: Within normal limits. Biliary ducts: Unremarkable. Pancreas: Unremarkable. Spleen: Unremarkable. Adrenal Glands: Unremarkable. Stomach and Bowel: There is prior partial colectomy with right-sided ileostomy in place. Postsurgical changes are seen in left lower quadrant. No evidence of bowel obstruction or abnormal bowel wall thickening. No mesenteric fat stranding. No abscess collection. Peritoneum: No abnormal intraperitoneal fluid. No free air. Ventral Wall: No hernia. Abdominal Nodes: No enlarged retroperitoneal or mesenteric lymph nodes. Vessels: Fusiform infrarenal abdominal aortic aneurysm is again seen measures up to 4.3 cm in largest AP diameter unchanged from previous study. Dense atherosclerotic calcifications throughout abdominal aorta and bilateral iliac vessels are seen. PELVIS: Pelvic Organs: Unremarkable. Pelvic Nodes: Unremarkable. Miscellaneous: No inguinal hernias are seen. Bones: No suspicious bony lesion. No acute vertebral body compression fracture. IMPRESSION: 1. No obstructing renal stones or hydronephrosis. No hydroureter. Stable appearing exophytic mass in left upper pole kidney and stable left renal cyst. 2. Diffuse bladder wall thickening concerning for cystitis. No discrete bladder wall mass is noted. No calcified bladder stones. 3. Prior partial colectomy with right-sided ileostomy. No bowel obstruction or abnormal bowel wall thickening. No free fluid or free air. 4. Stable fusiform infrarenal abdominal aortic aneurysm measures up to 4.3 cm in largest AP diameter. Dense atherosclerotic calcifications throughout abdominal aorta and bilateral iliac vessels. Dictated by: Pawel Curry M.D. on 01/02/2022 at 23:10 Approved by: Pawel Curry M.D. on 01/02/2022 at 23:20
[2022-01-02 23:00] LABS: Appearance Urine UA CLEAR; Bilirubin Urine UA NEGATIVE (NEGATIVE); Color Urine UA YELLOW; Glucose Urine UA NEGATIVE (Negative); Ketones Urine UA NEGATIVE (NEGATIVE); Leukocyte Esterase Urine UA NEGATIVE (NEGATIVE); Nitrite Urine UA NEGATIVE (Negative); Occult Blood Urine UA 1+ (Negative); Protein Urine UA TRACE (Negative); Urobilinogen Urine UA 0.2 E.U./dL (0.2); pH Urine UA 5.5 (4.5-8.0)
[2022-01-02 23:01] LABS: RBC Urine 1-5/HPF (0-5/HPF)
[2022-01-02 23:02] LABS: Bacteria Urine Occasional (0-1); Calcium Oxalate Crystals Urine Occasional; Culture Indicated Urine Cult Not Indicated; Hyaline Casts Urine 1-5/LPF; Mucus Urine 2+ (Negative); Squamous Epithelial Cell Urine 0-1 /HPF (0-5/HPF); WBC Urine None Seen (0-5/HPF)
--- NOTE | 2022-01-02 23:32 | ED_ITS ---
HPI - Male Genitourinary General Chief complaint: Urogenital-Male Stated complaint: Groin pain, difficulty urinating Time Seen by Provider: 01/02/22 22:21 Source: patient Mode of arrival: Ambulatory History of Present Illness HPI Narrative: 66-year-old male former smoker with history of colon cancer, thyroid cancer, atrial fibrillation and colitis has diverting ostomy and presents with multiple complaints. He states that he is had pain in his left groin for many months and though he is had unremarkable imaging including scrotal ultrasound he has been unable to get in with Urology for evaluation and hopes that we can help him do this. He denies any fever or chills. He denies any change in the output in his ostomy. He states that he felt like he was having trouble urinating earlier tonight but admits that he has not been drinking much today. He is not dizzy nor weak or lightheaded. Related Data Home Medications Medication Instructions Recorded Confirmed albuterol sulfate 90 mcg/actuation 2 puff inhalation Q4HR 08/22/21 12/08/21 aerosol inhaler (ProAir HFA) alfuzosin 10 mg tablet,extended 10 mg PO DAILY uti 08/22/21 12/08/21 release 24 hr (Uroxatral) apixaban 5 mg tablet (Eliquis) 5 mg PO BID afib 08/22/21 12/08/21 lansoprazole 30 mg delayed 30 mg PO DAILY gerd 08/22/21 12/08/21 release,disintegrating tablet (Prevacid SoluTab) levothyroxine 175 mcg tablet 175 mcg PO DAILY thyroid ca 08/22/21 12/08/21 (Synthroid) lisinopril 2.5 mg tablet (Zestril) 2.5 mg PO DAILY HTN 08/22/21 12/08/21 lubiprostone 24 mcg capsule 24 mcg PO BID 08/22/21 12/08/21 (Amitiza) methocarbamol 500 mg tablet 500 mg PO QID 08/22/21 12/08/21 metoprolol tartrate 25 mg tablet 12.5 mg PO BID 08/22/21 12/08/21 naloxone 4 mg/actuation nasal 1 spray intranasal PRN Sedation 08/22/21 12/08/21 spray (Narcan) oxycodone 10 mg tablet 10 mg PO Q4-5H CHRONIC 08/22/21 12/08/21 solifenacin 5 mg tablet 5 mg PO DAILY 12/08/21 12/08/21 Allergies Allergy/AdvReac Type Severity Reaction Status Date / Time gabapentin Allergy Severe Hallucinati Verified 12/08/21 15:16 ng nortriptyline Allergy Severe Chest Pain Verified 12/08/21 15:16 duloxetine [From Cymbalta] Allergy Intermediate Palpitation Verified 12/08/21 15:16 s pregabalin Allergy Intermediate VISION Verified 12/08/21 15:16 CHANGES Review of Systems Review of Systems Narrative: GENERAL: Denies chills, fatigue, malaise, fever, sweats. HEENT: Denies sinus pain, ear pain, sore throat, difficulty swallowing, dizziness. RESPIRATORY: Denies dyspnea, cough, wheezing, hemoptysis, sputum. CARDIOVASCULAR: Denies chest pain, palpitations, orthopnea, edema, GASTROINTESTINAL: See HPI : See HPI MUSCULOSKELETAL: denies weakness, joint pain, or bony pain SKIN: Denies rash, skin lesions, or other NEUROLOGIC: Denies weakness, headache, numbness, change in speech, confusion, seizures, incoordination. PSYCHIATRIC: No concerning psychosocial issues. 12 point review of systems is negative except for those stated above Patient History Medical History Arthritis Chest pain Colon cancer COPD (chronic obstructive pulmonary disease) Coronary artery disease involving [place] heart GERD (gastroesophageal reflux disease) High blood pressure Inflammatory bowel disease Peripheral vascular disease Thyroid disease Surgical History H/O abdominal surgery History of colon surgery History of hernia surgery History of testicular surgery History of thoracic surgery History of thyroid surgery Family History Mother Cancer Sister Thyroid cancer Grandmother Cancer Family/Other Cancer Coronary artery disease Hyperlipidemia Hypertension Thyroid cancer Inflammatory bowel disease Social History marital status: unmarried,single number of children: 0 household members: family Smoking Status: Former smoker Type(s) of exercise: other frequency: other Smoking Status: Former smoker alcohol intake frequency: 0-2 drinks per day Substance Use Type: marijuana Exam Narrative Exam Narrative: GENERAL: [66] year old patient appears stated age. Well-developed patient, in mild distress. Slightly anxious HEAD: Atraumatic. Normocephalic. EYES: Pupils equal round and reactive. Extraocular motions intact. No scleral icterus. No injection or drainage. ENT: Nose without bleeding, purulent drainage. Throat without erythema, tonsillar hypertrophy or exudate. Airway patent. NECK: Trachea midline. Non tender CARDIOVASCULAR: Regular rate and rhythm without murmurs, gallops, or rubs. RESPIRATORY: Clear to auscultation. Breath sounds equal bilaterally. No wheezes, rales, or rhonchi. GASTROINTESTINAL: Abdomen soft, non-tender, nondistended. : No testicular swelling or pain. No groin mass, discoloration RECTAL: No bleeding, drainage or fullness EXTREMITIES: No edema or joint tenderness. BACK: Nontender without deformity or crepitance. No flank tenderness. NEURO: AOx3. SKIN: No rash or erythema of visible areas Initial Vital Signs Initial Vital Signs: Vital Signs Temperature 97.9 F 01/02/22 22:27 Pulse Rate 78 01/02/22 22:27 Respiratory Rate 22 01/02/22 22:27 Blood Pressure 155/88 H 01/02/22 22:27 Pulse Oximetry 98 01/02/22 22:27 Oxygen Delivery Method 01/02/22 22:27 Course Orders Ordered: ED Orders 01/02/22 22:30 Urinalysis and Microscopic Stat 01/02/22 22:55 CT kidney ureter bladder (KUB) Stat Vital Signs Vital signs: Vital Signs - 8 hr 01/02/22 22:27 Temperature 97.9 F Pulse Rate 78 Respiratory Rate 22 Blood Pressure 155/88 H Pulse Oximetry 98 Oxygen Delivery Method Room Air MDM - Male Genitourinary Lab Data Labs: Lab Results 01/02/22 Range/Units 22:30 Urine Color Yellow Urine Appearance Clear Urine pH 5.5 (4.5-8.0) Ur Specific [place] 1.020 (1.000-1.035) Urine Protein Trace H (Negative) Urine Glucose (UA) Negative (Negative) g/dL Urine Ketones Negative (NEGATIVE) Urine Occult Blood 1+ H (Negative) Urine Nitrate Negative (Negative) Urine Bilirubin Negative (NEGATIVE) Urine Urobilinogen 0.2 (0.2) E.U./dL Ur Leukocyte Esterase Negative (NEGATIVE) Urine RBC 1-5/hpf (0-5/HPF) Urine WBC None seen (0-5/HPF) Ur Squamous Epith Cells 0-1 /hpf (0-5/HPF) Calcium Oxalate Crystal Occasional H Urine Bacteria Occasional (0-1) (None) Hyaline Casts 1-5/lpf (None) Urine Mucus 2+ H (Negative) Ur Culture Indicated? Cult not indicated Imaging Data CT scan - abdomen/pelvis: Radiologist's Impression: Rayshawn Kasper??66??M??1955 ? Allergy/Adv: gabapentin, nortriptyline, duloxetine, pregabalin (More??) Close Abdomen/Pelvis CT (Signed) Pawel Curry - 01/02/22 Scrotum Ultrasound (Signed) Vanessa Lazaro - 11/09/21 Abdomen/Pelvis CT (Signed) Vanessa Lazaro - 11/09/21 Chest/Abdomen/Pelvis CT (Signed) Dylan Rodriguez - 08/22/21 DI Result CC 04/14/21 DI Result CC 02/22/21 Abdomen/Pelvis CT (Signed) Gabi Muhammad - 02/16/21 Outside DI 12/24/20 Outside DI 12/16/20 Outside DI 09/05/20 Outside DI 08/22/20 Outside DI 08/12/[address] (Signed) Stuart Leal - 01/18/19 Scrotum Ultrasound (Signed) Vladimir Perez - 08/18/18 [place] [address] CT Scan Report Signed Patient: Rayshawn Kasper MR#: [id number] : 1955 Acct:[id number] Age/Sex: 66 / M Date of Service: 01/02/22 Loc: ED Accession Number: [id number] ?? Procedure: CT kidney ureter bladder (KUB) Ordering Provider: Oscar Leo D.O. PROCEDURE:? CT KIDNEY URETER BLADDER (KUB) ? INDICATIONS:? flank pain, testicular pain, trouble urinating ? TECHNIQUE:? Axial sections were acquired from the lung bases to the pubic symphysis.? Coronal and sagittal reformats were performed.? For radiation dose reduction, the following was used: ?automated exposure control, adjustment of mA and/or kV according to patient size.? ? COMPARISON:? [facility], CT, CT IVP A/P W/WO, 11/09/2021, 13:26. ? FINDINGS:? Image quality:? Excellent.? ? Lung bases:? Unremarkable.? ? Heart:? Pacemaker leads are seen.? Heart size is mildly enlarged, no pericardial effusion. ? URINARY: Right Kidney:? No stones or hydronephrosis. Right Ureter:? No hydroureter. ? Left Kidney:? Faint 1-2 mm nonobstructing stones are seen in left kidney.? No hydronephrosis.? 2.4 cm cyst in midpole of left kidney is seen unchanged from prior studies.? Patient's known exophytic and enhancing lesion involving upper pole of left kidney is again seen unchanged from 11/09/2021 study. Left Ureter:? No hydroureter. ? Bladder:? Diffuse bladder wall thickening is noted, no discrete bladder wall mass.? Enlarged prostate gland is seen with mass effect on floor of urinary bladder.? No calcified bladder stones. ? ABDOMEN: Liver:? Liver is normal in size.? Multiple well-circumscribed hypodense areas are again seen scattered in liver parenchyma better evaluated on previous IVP study and are unchanged in size and appearance suggestive of numerous hepatic cysts. Gallbladder:? Within normal limits. Biliary ducts:? Unremarkable.? ? Pancreas:? Unremarkable.? ? Spleen:? Unremarkable.? ? Adrenal Glands:? Unremarkable.? ? ? Stomach and Bowel:? There is prior partial colectomy with right-sided ileostomy in place. ?Postsurgical changes are seen in left lower quadrant.? No evidence of bowel obstruction or abnormal bowel wall thickening.? No mesenteric fat stranding.? No abscess collection. Peritoneum:? No abnormal intraperitoneal fluid.? No free air.? ? Ventral Wall: ? No hernia.? Abdominal Nodes:? No enlarged retroperitoneal or mesenteric lymph nodes.? Vessels:? Fusiform infrarenal abdominal aortic aneurysm is again seen measures up to 4.3 cm in largest AP diameter unchanged from previous study.? Dense atherosclerotic calcifications throughout abdominal aorta and bilateral iliac vessels are seen. ? PELVIS: Pelvic Organs:? Unremarkable.? ? Pelvic Nodes: Unremarkable. Miscellaneous: No inguinal hernias are seen. ? ? ? Bones:? No suspicious bony lesion.? No acute vertebral body compression fracture. ? IMPRESSION:? ? 1. No obstructing renal stones or hydronephrosis.? No hydroureter.? Stable appearing exophytic mass in left upper pole kidney and stable left renal cyst. 2. Diffuse bladder wall thickening concerning for cystitis.? No discrete bladder wall mass is noted.? No calcified bladder stones. 3. Prior partial colectomy with right-sided ileostomy.? No bowel obstruction or abnormal bowel wall thickening.? No free fluid or free air. 4. Stable fusiform infrarenal abdominal aortic aneurysm measures up to 4.3 cm in largest AP diameter.? Dense atherosclerotic calcifications throughout abdominal aorta and bilateral iliac vessels.? ? ? Dictated by: Pawel Curry M.D. on 01/02/2022 at 23:10 ? ? Approved by: Pawel Curry M.D. on 01/02/2022 at 23:20 ? MDM Narrative Medical decision making narrative: Patient with reassuring history and physical exam and symptoms that have been bothering him for many months. He states that none of these symptoms are new but he is concerned that they persist and mentions multiple times that it makes him concerned that he has been having trouble getting in with Urology as he was previously referred. He has no evidence of urinary retention, no sign of infection in the urine. I did discuss with him the potential of doing another testicular ultrasound but he just had 1 a few weeks ago and states his symptoms are unchanged. The CT of his abdomen and pelvis is unremarkable and shows no significant findings that would require specific or immediate intervention. He is given reassurance, return precautions and questions have been answered to his apparent satisfaction Discharge Plan Departure Patient Disposition: Home Clinical Impression: Groin pain, chronic, left Activity Restrictions/Additional Instructions: *You have been diagnosed with [chronic groin pain. Thankfully your history and physical exam are reassuring, your show no sign of urinary retention or urine infection. Your CT scan has no significant findings. I will electronically transmitted a copy of today's note to the urology clinic, this should help you establish care and get an appointment] *What to do: *Please continue to take your regular medications as directed. [ *Please follow up with Dr. Jain at the urology clinic, call tomorrow morning for an appointment. Let them know you were seen in the Emergency Department and that we ask that you be seen in follow up. We will electronically transmit a record of today's note *Return to Emergency Department if you should have any new, worsening or concerning symptoms, such as [fever greater than 101 F, shaking chills, worsening pain, persistent vomiting or other bothersome symptoms] Prescriptions: No Action albuterol sulfate [ProAir HFA] 90 mcg/actuation HFA aerosol inhaler 2 puff INHALATION Q4HR Label Comments: INHALE 2 PUFFS BY MOUTH EVERY FOUR HOURS NEEDED FOR WHEEZING OR SHORTNESS OF BREATH alfuzosin [Uroxatral] 10 mg tablet extended release 24 hr 10 mg PO DAILY Eliquis 5 mg tablet 5 mg PO BID Label Comments: TAKE ONE TABLET BY MOUTH TWICE DAILY lansoprazole [Prevacid SoluTab] 30 mg tablet,disintegrat, delay rel 30 mg PO DAILY Label Comments: DISSOLVE ONE TABLET IN MOUTH ONE TIME DAILY levothyroxine [Synthroid] 175 mcg tablet 175 mcg PO DAILY Label Comments: TAKE ONE TABLET BY MOUTH ONE TIME DAILY lisinopril [Zestril] 2.5 mg tablet 2.5 mg PO DAILY Label Comments: TAKE ONE TABLET BY MOUTH ONE TIME DAILY lubiprostone [Amitiza] 24 mcg capsule 24 mcg PO BID Label Comments: Take 1 capsule by mouth 2 (two) times a day with meals methocarbamol 500 mg tablet 500 mg PO QID Label Comments: TAKE ONE TABLET BY MOUTH FOUR TIMES DAILY NEEDED for muscle spasms metoprolol tartrate 25 mg tablet 12.5 mg PO BID Label Comments: TAKE 1/2 TABLET BY MOUTH TWICE DAILY naloxone [Narcan] 4 mg/actuation spray,non-aerosol 1 spray INTRANASAL PRN (Reason: Sedation) Label Comments: FOR SUSPECTED OPIOID OVERDOSE ADMINISTER A SINGLE SPRAY INTO 1 NOSTRIL, THEN SEEK EMERGENCY MEDICAL CARE. MAY REPEAT EVERY 2-3 MINUTES IF MINIMAL OR NO RESPONSE. oxycodone 10 mg tablet 10 mg PO Q4-5H Label Comments: TAKE ONE TABLET BY MOUTH EVERY SIX HOURS NEEDED FOR MODERATE PAIN solifenacin 5 mg tablet 5 mg PO DAILY Referrals: Marciano Jain MD [Physician] - Mary Mills DO [Primary Care Provider] -
[2022-01-02 23:50] VITALS: BP 157/88; PULSE 79; RESP 20; O2SAT 97
== END 2022-01-02 23:51 | disposition home or self-care (01) ==
PROVIDERS: Emergency Provider Emergency Medicine; Family Provider Family Medicine; PCP Family Medicine
DX: R10.9 Unspecified abdominal pain (principal); N50.812 Left testicular pain
CPT/HCPCS: 51798; 74176; 81001; 99282; 99284

== ENCOUNTER 2022-03-28 16:41 | Emergency (ER) | payer MEDICARE, MEDICAID, SELFPAY ==
[2021-08-22 10:02] VITALS: BMI 18.3
[2022-03-28 17:00] VITALS: BP 114/70; PULSE 57; RESP 18; TEMP 36.8; O2SAT 97; BMI 18.3
--- NOTE | 2022-03-28 17:39 | DI.US.S_ITS ---
PROCEDURE: US SCROTUM INDICATIONS: PAIN TECHNIQUE: Real-time scanning was performed of the scrotum and testicles, with image documentation. Color and pulse Doppler interrogation was performed of both testicles. COMPARISON: [facility], , US SCROTUM, 11/09/2021, 13:07. FINDINGS: Right: Right testicle measures 3.7 x 1.7 x 2.7 centimeters. Echotexture is heterogeneous. Prominent rete testes and small cystic foci again seen. No hydrocele or varicocele. Cluster of cysts in the right scrotum again seen measuring up to 2.4 centimeters. Right epididymis is surgically absent, possibly with some residual tissue, also noted on prior ultrasound. Left: Left testis measures 3.4 x 2 x 2.8 centimeters. Overall echotexture is homogeneous. Trace left hydrocele. No varicocele. Epididymis within normal limits. Doppler: Color and pulse Doppler demonstrate normal and symmetric arterial flow in both testicles. IMPRESSION: No evidence of torsion. Trace left hydrocele. Other findings as above, favored stable. Dictated by: Dionicio Howard M.D. on 03/28/2022 at 19:21 Approved by: Dionicio Howard M.D. on 03/28/2022 at 19:24
[2022-03-28] MEDS: HYDROMORPHONE 1 MG INJ IM (18:06)
--- NOTE | 2022-03-28 18:39 | ED.MALEGU ---
HPI - Male Genitourinary General Chief complaint: Urogenital-Male Stated complaint: thinks he ruptured a testicle Time Seen by Provider: 03/28/22 18:24 Source: patient Mode of arrival: Ambulatory History of Present Illness HPI Narrative: 66-year-old male former smoker with a history of a neoplasm on his kidney, colitis, ostomy presents with pain in his testicle after an injury earlier today. He was laying down and states it is scrotum got caught between the edge of the bed and the railing and when he stood up he felt a pulling sensation and he is concerned that he ruptured his testicle. He has pain but no significant swelling or discoloration. He denies any difficulty producing urine and is otherwise well and free of complaint Related Data Home Medications Medication Instructions Recorded Confirmed albuterol sulfate 90 mcg/actuation 2 puff inhalation Q4HR 08/22/21 01/05/22 aerosol inhaler (ProAir HFA) alfuzosin 10 mg tablet,extended 10 mg PO DAILY uti 08/22/21 01/05/22 release 24 hr (Uroxatral) apixaban 5 mg tablet (Eliquis) 5 mg PO BID afib 08/22/21 01/05/22 levothyroxine 175 mcg tablet 175 mcg PO DAILY thyroid ca 08/22/21 01/05/22 (Synthroid) lisinopril 2.5 mg tablet (Zestril) 2.5 mg PO DAILY HTN 08/22/21 01/05/22 metoprolol tartrate 25 mg tablet 12.5 mg PO BID 08/22/21 01/05/22 naloxone 4 mg/actuation nasal 1 spray intranasal PRN Sedation 08/22/21 01/05/22 spray (Narcan) oxycodone 10 mg tablet 10 mg PO Q4-5H CHRONIC 08/22/21 01/05/22 solifenacin 5 mg tablet 5 mg PO DAILY 12/08/21 01/05/22 Allergies Allergy/AdvReac Type Severity Reaction Status Date / Time gabapentin Allergy Severe Hallucinati Verified 01/05/22 10:11 ng nortriptyline Allergy Severe Chest Pain Verified 01/05/22 10:11 duloxetine [From Cymbalta] Allergy Intermediate Palpitation Verified 01/05/22 10:11 s pregabalin Allergy Intermediate VISION Verified 01/05/22 10:11 CHANGES Review of Systems Review of Systems Narrative: GENERAL: Denies chills, fatigue, malaise, fever, sweats. HEENT: Denies sinus pain, ear pain, sore throat, difficulty swallowing, dizziness. RESPIRATORY: Denies dyspnea, cough, wheezing, hemoptysis, sputum. CARDIOVASCULAR: Denies chest pain, palpitations, orthopnea, edema, GASTROINTESTINAL: Denies nausea, vomiting, abdominal pain, diarrhea, constipation, melena. : See HPI MUSCULOSKELETAL: denies weakness, joint pain, or bony pain SKIN: Denies rash, skin lesions, or other NEUROLOGIC: Denies weakness, headache, numbness, change in speech, confusion, seizures, incoordination. PSYCHIATRIC: No concerning psychosocial issues. 12 point review of systems is negative except for those stated above Patient History Medical History Arthritis Chest pain Colon cancer COPD (chronic obstructive pulmonary disease) Coronary artery disease involving [place] heart GERD (gastroesophageal reflux disease) High blood pressure Inflammatory bowel disease Neoplasm of uncertain behavior of left kidney Peripheral vascular disease Thyroid disease Surgical History H/O abdominal surgery History of colon surgery History of hernia surgery History of testicular surgery History of thoracic surgery History of thyroid surgery Family History Mother Cancer Sister Thyroid cancer Grandmother Cancer Family/Other Cancer Coronary artery disease Hyperlipidemia Hypertension Thyroid cancer Inflammatory bowel disease Social History marital status: unmarried,single number of children: 0 household members: family Smoking Status: Former smoker Type(s) of exercise: other frequency: other Smoking Status: Former smoker alcohol intake frequency: 0-2 drinks per day Substance Use Type: marijuana Exam Narrative Exam Narrative: GEN: AOx3 and in mild distress EYES: Pupils are equal, round, and reactive to light and accommodation. Extraoccular muscles are intact bilaterally. There is no subconjunctival hemorrhage or exudate. CHEST: Lungs are clear to auscultation bilaterally and free of wheezes, rales, or rhonchi. Heart rate is regular rhythm, there are no murmurs, clicks, rubs, or gallops. There is no chest wall tenderness. ABD: Abdomen is soft and nontender. There is no guarding or rebound. Bowel sounds are normal in all 4 quadrants. There is no mass or organomegaly. : examined in standing position, tender on R side of scrotum, no significant swelling, discoloration or obvious external manifestation of injury EXT: Full painless ROM of all extremities with no loss of sensation or strength. SKIN: Warm, pink, and dry. No erythema or rash Initial Vital Signs Initial Vital Signs: Vital Signs Temperature 98.2 F 03/28/22 17:00 Pulse Rate 57 L 03/28/22 17:00 Respiratory Rate 18 03/28/22 17:00 Blood Pressure 114/70 03/28/22 17:00 Pulse Oximetry 97 03/28/22 17:00 Oxygen Delivery Method 03/28/22 17:00 Course Orders Ordered: Discontinued Medications Hydromorphone HCl (Hydromorphone 1 Mg Inj) 1 mg IM NOW ONE Stop: 03/28/22 18:03 Last Admin: 03/28/22 18:06 Dose: 1 mg Documented By: JANETH Vital Signs Vital signs: Vital Signs - 8 hr 03/28/22 17:00 Temperature 98.2 F Pulse Rate 57 L Respiratory Rate 18 Blood Pressure 114/70 Pulse Oximetry 97 Oxygen Delivery Method Room Air MDM - Male Genitourinary Lab Data Labs: Urine Dip Bedside Urine Glucose Negative Bedside Urine Bilirubin - Negative Bedside Urine Ketone - Negative Urine Specific [place] 1.025 Bedside Urine Occult Blood +/- Bedside Urine pH 6.0 Bedside Urine Protein - Negative Bedside Urine Urobilinogen - Negative Bedside Urine Nitrite - Negative Bedside Urine Leukocytes - Negative Esterase Imaging Data US Scrotum: Radiologist's Impression: [place] [address] Ultrasound Report Signed Patient: Rayshawn Kasper MR#: [id number] : 1955 Acct:[id number] Age/Sex: 66 / M Date of Service: 03/28/22 Loc: ED Accession Number: [id number] ?? Procedure: US scrotum Ordering Provider: Bianka Braswell D.O. PROCEDURE:? US SCROTUM ? INDICATIONS:? PAIN ? TECHNIQUE:? Real-time scanning was performed of the scrotum and testicles, with image documentation.? Color and pulse Doppler interrogation was performed of both testicles.? ? COMPARISON:? [facility], , US SCROTUM, 11/09/2021, 13:07. ? FINDINGS:? ? Right:? Right testicle measures 3.7 x 1.7 x 2.7 centimeters.? Echotexture is heterogeneous.? Prominent rete testes and small cystic foci again seen. No hydrocele or varicocele. Cluster of cysts in the right scrotum again seen measuring up to 2.4 centimeters. Right epididymis is surgically absent, possibly with some residual tissue, also noted on prior ultrasound. ? Left:? Left testis measures 3.4 x 2 x 2.8 centimeters.? Overall echotexture is homogeneous.? Trace left hydrocele.? No varicocele. Epididymis within normal limits. ? Doppler:? Color and pulse Doppler demonstrate normal and symmetric arterial flow in both testicles.? ? IMPRESSION:? No evidence of torsion.? Trace left hydrocele.? Other findings as above, favored stable. ? ? Dictated by: Dionicio Howard M.D. on 03/28/2022 at 19:21 ? ? Approved by: Dionicio Howard M.D. on 03/28/2022 at 19:24 ? MDM Narrative Medical decision making narrative: [66-year-old male on anticoagulation with testicular pain after injury] Multiple etiologies for patient's symptoms considered including, but not limited to: [Torsion, hematoma, rupture versus other] Prior Charts reviewed: including multiple prior ED visits Labs reviewed and interpreted by myself: Urine without evidence of infection or bleeding Imaging reviewed: Trace left hydrocele, no evidence of trauma or torsion Patient's symptoms improved over duration of stay with above-stated therapies. Findings and discharge diagnosis discussed with patient/family followed by verbalization of understanding Return precautions discussed with patient/family whom verbalize understanding of diagnosis and plan Discharge Plan Departure Patient Disposition: Home Clinical Impression: Pain in right testicle Instructions: DI for Testicular Pain Activity Restrictions/Additional Instructions: *You have been diagnosed with [testicular pain after injury. As we discussed your history and physical exam are reassuring and ultrasound demonstrates no significant abnormal findings such as rupture, bleeding or twisting of the testicle] *What to do: *Please continue to take your regular medications as directed. [ ] New medication prescriptions sent to your pharmacy: [ ] [ ] New medication written as a paper prescription [x ] No new medications given *Please follow up with your primary urologist in 2-3 days, call for an appointment. Let them know you were seen in the Emergency Department and that we ask that you be seen in follow up. We will electronically transmit a record of today's note *Return to Emergency Department if you should have any new, worsening or concerning symptoms, such as [fever greater than 101 F, shaking chills, worsening pain, persistent vomiting or other bothersome symptoms] Prescriptions: No Action albuterol sulfate [ProAir HFA] 90 mcg/actuation HFA aerosol inhaler 2 puff INHALATION Q4HR Label Comments: INHALE 2 PUFFS BY MOUTH EVERY FOUR HOURS NEEDED FOR WHEEZING OR SHORTNESS OF BREATH alfuzosin [Uroxatral] 10 mg tablet extended release 24 hr 10 mg PO DAILY Eliquis 5 mg tablet 5 mg PO BID Label Comments: TAKE ONE TABLET BY MOUTH TWICE DAILY levothyroxine [Synthroid] 175 mcg tablet 175 mcg PO DAILY Label Comments: TAKE ONE TABLET BY MOUTH ONE TIME DAILY lisinopril [Zestril] 2.5 mg tablet 2.5 mg PO DAILY Label Comments: TAKE ONE TABLET BY MOUTH ONE TIME DAILY metoprolol tartrate 25 mg tablet 12.5 mg PO BID Label Comments: TAKE 1/2 TABLET BY MOUTH TWICE DAILY naloxone [Narcan] 4 mg/actuation spray,non-aerosol 1 spray INTRANASAL PRN (Reason: Sedation) Label Comments: FOR SUSPECTED OPIOID OVERDOSE ADMINISTER A SINGLE SPRAY INTO 1 NOSTRIL, THEN SEEK EMERGENCY MEDICAL CARE. MAY REPEAT EVERY 2-3 MINUTES IF MINIMAL OR NO RESPONSE. oxycodone 10 mg tablet 10 mg PO Q4-5H Label Comments: TAKE ONE TABLET BY MOUTH EVERY SIX HOURS NEEDED FOR MODERATE PAIN solifenacin 5 mg tablet 5 mg PO DAILY Referrals: Marciano Jain MD [Physician] - Mary Mills DO [Primary Care Provider] - Stand Alone Forms: Patient Portal/API
== END 2022-03-28 20:06 | disposition home or self-care (01) ==
PROVIDERS: Emergency Provider Emergency Medicine; Family Provider Family Medicine; PCP Family Medicine
DX: N50.811 Right testicular pain (principal)
CPT/HCPCS: 76870; 81003; 93975; 96372; 99283; J1170

== ENCOUNTER → 2022-06-13 12:38 | Outpatient (CLI) | payer MEDICARE, MEDICAID, SELFPAY ==
[2021-08-22 10:02] VITALS: BMI 18.3
--- NOTE | 2022-06-13 12:41 | DI.ECHO.S_ITS ---
[facility] +---------+ : : [address] : : : : [id number] : : : : Phone: [phone]+ Echocardiogram Report + + :Name: ARTURO DELGADILLO Study Date: 06/13/2022 Height: 72 in : :[facility] ReadingLocation: Weight: 135 lb : : Gender: Male BSA: 1.8 m2 : :: 1955 Age: 66 yrs BP: 122/78 mmHg: :Reason For Study: THORACIC AORTIC ECTASIA HR: 60 : :Ordering Physician: ISAIAS, : :SMITH Performed By: RAO JOSÉ : :Referring: SMITH ESPARZA : + + Interpretation Summary The left ventricle is normal in size. Left ventricular ejection fraction is estimated to be 50 +/- 5%. Previous LVEF 45 to 50%. The right ventricle is moderately dilated. Previously mildly dilated. Right ventricular size has increased since the prior echo exam. The right ventricular systolic function is normal. There is a pacemaker lead in the right ventricle. There is mild tricuspid regurgitation. The IVC is of normal diameter and collapses greater than 50% with a sniff. This suggests a low right atrial pressure of 3 mm Hg. The ascending aorta is mild-moderately enlarged. 4.2 cm in diameter. Unchanged from the previous study. Procedure: A two-dimensional transthoracic echocardiogram with color flow and Doppler was performed. The study quality was technically adequate. Comparison is made with the echocardiogram of 12/12/2019. The patient was in normal sinus rhythm during the exam. Left Ventricle: The left ventricle is normal in size. Proximal septal thickening is noted. There is no echo evidence for significant left ventricular outflow tract obstruction. There is no thrombus. Left ventricular ejection fraction is estimated to be 50 +/- 5%. Septal motion is consistent with conduction abnormality. Diastolic parameters suggest a relaxation abnormality of the left ventricle, consistent with probable normal filling pressures. Right Ventricle: The right ventricle is moderately dilated. There is a pacemaker lead in the right ventricle. Right ventricular size has increased since the prior echo exam. The right ventricular systolic function is normal. There has been no significant change since the previous study. Atria: The left atrial size is normal. There has been no significant change since the previous study. The right atrium is mildly dilated. There is no Doppler evidence for an interatrial shunt. The thickening of interatrial septum suggests lipomatous hypertrophy. Mitral Valve: The mitral valve leaflets are slightly calcified. There is trace mitral regurgitation. Aortic Valve: The aortic valve is trileaflet. The aortic valve opens well. There is no aortic valve stenosis. No aortic regurgitation is present. Tricuspid Valve: The tricuspid valve is normal. There is mild tricuspid regurgitation. Pulmonary artery pressures cannot be estimated because of the lack of a measurable TR jet velocity. Pulmonic Valve: The pulmonic valve leaflets are thin and pliable; valve motion is normal. There is no pulmonic valvular regurgitation. Great Vessels: The aortic root is mildly dilated. The aortic root measures 4.2 cm. The ascending aorta is mild-moderately enlarged. This is unchanged compared to the previous study. The IVC is of normal diameter and collapses greater than 50% with a sniff. This suggests a low right atrial pressure of 3 mm Hg. Pericardium/ Pleura There is no pericardial effusion. There is no pleural effusion. MMode/2D Measurements & Calculations LVIDd: 4.0 cm LVOT diam: 2.3 cm LVIDs: 2.9 cm Ao root diam: 4.2 cm FS: 27.5 % asc Aorta Diam: 4.2 cm IVSd: 0.90 cm LVPWd: 0.90 cm LV north. diameter/BSA (cm/m^2): 2.2 LV sys. diameter/BSA (cm/m^2): 1.6 LA A2 area: 16.9 cm2 RA long axis: 4.7 cm LA A4 area: 13.2 cm2 IVC diam: 1.7 cm LA length (vol): 4.7 cm LA vol: 40.3 ml LA vol index: 22.3 ml/m2 RVD1 (basal): 4.9 cm LVLs ap4: 6.8 cm LVLd ap2: 8.3 cm TAPSE_phl: 1.9 cm LVLs ap2: 7.2 cm Doppler Measurements & Calculations Ao V2 max: 93.2 cm/sec LVOT Max Antoni: 90.0 cm/sec Ao V2 mean: 64.5 cm/sec LV V1 max P.2 mmHg Ao max P.5 mmHg LV V1 VTI: 16.8 cm Ao mean P.0 mmHg FELIPE(I,D): 3.8 cm2 Ao V2 VTI: 18.3 cm FELIPE(V,D): 4.0 cm2 sev ratio: 0.92 FELIPE indexed to BSA (cm^2/m^2): 2.1 MV E max antoni: 41.5 cm/sec TR max antoni: 199.0 cm/sec MV A max antoni: 48.0 cm/sec TR max P.8 mmHg MV E/A: 0.86 PA V2 max: 62.9 cm/sec Med Peak E' Antoni: 7.6 cm/sec PA V2 mean: 54.2 cm/sec E/E' med: 5.4 PA mean P.0 mmHg Lat Peak E' Antoni: 9.6 cm/sec PA pr(Accel): 40.8 mmHg E/E' lat: 4.3 E/e' average: 4.9 MV dec time: 0.30 sec SV(LVOT): 69.8 ml AV VR_phl: 0.97 FELIPE(VTI)/BSA_phl: 2.1 MV P1/2t-pr_phl: 87.0 msec Reading Physician:04:07 PM
== END ==
PROVIDERS: Family Provider Family Medicine; PCP Family Medicine; Referring Provider Internal Medicine Cardiovascular Disease; Visit Provider Internal Medicine Cardiovascular Disease
DX: I07.1 Rheumatic tricuspid insufficiency (principal); I77.810 Thoracic aortic ectasia; I77.89 Other specified disorders of arteries and arterioles
CPT/HCPCS: 93306

== ENCOUNTER → 2023-03-08 10:45 | Outpatient (CLI) | payer MEDICARE, MEDICAID, SELFPAY ==
[2021-08-22 10:02] VITALS: BMI 18.3
--- NOTE | 2023-03-08 23:40 | DI.NM.S_ITS ---
DATE OF SERVICE: 03/08/2023 PROCEDURE PERFORMED: Pharmacologic vasodilator stress and rest myocardial perfusion imaging with gating to assess ejection fraction and regional wall motion. ORDERING PROVIDER: JAH Steele INDICATIONS: The patient is a 67-year-old male with a history of paroxysmal atrial fibrillation and pacemaker therapy with documented high ventricular rates and significant exertional dyspnea and nonexertional chest discomfort. PHARMACOLOGIC STRESS: Per protocol, 0.4 mg of regadenoson was infused and he was walked at 1.0 mph at 0% grade. With this, he developed significant dyspnea but oxygen saturation levels remained >96%. He had a normal hemodynamic response and denied any chest discomfort. His resting ECG showed sinus rhythm with occasional PACs. ST segments were normal and there was no significant ventricular pacing. With stress, he developed occasional isolated PVCs but no ST-segment shifts or arrhythmias.. Per protocol, 25.2 millicuries of technetium-99m Myoview was injected and he was imaged 15 minutes later using a gated SPECT acquisition protocol. Earlier in the day, while at rest, he had been injected with 11.7 millicuries of technetium-99m Myoview and was imaged 15 minutes later, again using a gated SPECT acquisition protocol. FINDINGS: 1. Raw data. There is fair myocardial tracer uptake. The lung/heart ratio is normal at 0.32 with a normal TID ratio of 0.93. 2. Quantitative gated SPECT: Post-stress ejection fraction is estimated at 75% without any focal wall motion abnormality. The resting ejection fraction is estimated at 67% with a normal end-diastolic volume of 108 mL. 3. Myocardial perfusion imaging: Post-stress supine images show a fairly normal myocardial perfusion pattern with only an extremely subtle inferior defect, likely reflecting diaphragmatic attenuation, although the patient was unable to lie prone because of his colostomy bag. The resting images show a more profound defect in the inferior wall and no areas of improvement. IMPRESSION: 1. Probable normal myocardial perfusion study. 2. Very subtle inferior defect that worsens on the resting images, likely secondary to diaphragmatic attenuation given the absence of any wall motion abnormality in this distribution. Prone images were not available to assess for this. There is no evidence for any significant myocardial ischemia or infarction. 3. Normal left ventricular systolic function without any focal wall motion abnormality. Left ventricular volumes are normal. 4. No angina or ECG changes with pharmacologic vasodilator stress and low level walking although with significant dyspnea despite the absence of any hypoxia. He had occasional isolated PVCs with stress but no complex arrhythmias. Rayshawn Kasper - KELLY/kumar/JUSTINE doc#: [id number]/job#: [id number] dd: 03/08/2023 16:28:00 dt: 03/08/2023 23:13:00 DICTATING MD/COPIES TO: Indio Frank MD; Dana Ledbetter NP COPIES MNE: VALDO;
== END ==
PROVIDERS: Family Provider Family Medicine; PCP Family Medicine; Referring Provider Nurse Practitioner; Visit Provider Nurse Practitioner
DX: I42.9 Cardiomyopathy, unspecified (principal); I48.0 Paroxysmal atrial fibrillation; R07.89 Other chest pain; R06.09 Other forms of dyspnea; Z95.0 Presence of cardiac pacemaker
CPT/HCPCS: 78452; 93017; A9502; J2785

== ENCOUNTER 2023-08-10 18:35 | Emergency (ER) | payer MEDICARE, MEDICAID, SELFPAY ==
[2021-08-22 10:02] VITALS: BMI 18.3
[2023-08-10] VITALS (13 sets, daily range): BP systolic 117–138; BP diastolic 73–86; PULSE 59–64; RESP 14–21; TEMP 36.8; O2SAT 93–98; BMI 18.3
--- NOTE | 2023-08-10 19:43 | ED.GENADULT ---
HPI - General Adult General Chief complaint: Abdominal Pain Stated complaint: lower abd pain, recent surgery Time Seen by Provider: 08/10/23 19:21 History of Present Illness HPI narrative: Patient is a 67-year-old male. History of colon cancer. Had a colon resection and ileostomy. Proximally 6-8 weeks ago he had a takedown of the ileostomy and reanastomosis. This was done at [facility] by Dr. Galo. He also has had urologic issues with epididymitis and cysts. He was being followed by Urology. He reports the emergency department today for evaluation of lower abdominal discomfort. Has been present for the past several weeks. Has actually been present in 1 she per another since his surgery 60 weeks ago. He stated that his urologist wanted to make sure that it was not anything urologic. His primary doctor was concerned that maybe he had internal bleeding and thought that he needed a CT scan. Patient denies any urinary symptoms. It still having bowel movements. Is still passing flatus. No vomiting. No fevers. Describes the pain as midline and left-sided lower abdomen. Related Data Home Medications Medication Instructions Recorded Confirmed albuterol sulfate 90 mcg/actuation 2 puff inhalation Q4HR 08/22/21 06/23/22 aerosol inhaler (ProAir HFA) alfuzosin 10 mg tablet,extended 10 mg PO DAILY uti 08/22/21 06/23/22 release 24 hr (Uroxatral) apixaban 5 mg tablet (Eliquis) 5 mg PO BID afib 08/22/21 06/23/22 levothyroxine 175 mcg tablet 175 mcg PO DAILY thyroid ca 08/22/21 06/23/22 (Synthroid) lisinopril 2.5 mg tablet (Zestril) 2.5 mg PO DAILY HTN 08/22/21 06/23/22 metoprolol tartrate 25 mg tablet 12.5 mg PO BID 08/22/21 06/23/22 naloxone 4 mg/actuation nasal 1 spray intranasal PRN Sedation 08/22/21 06/23/22 spray (Narcan) oxycodone 10 mg tablet 10 mg PO Q4-5H CHRONIC 08/22/21 06/23/22 gabapentin PO 06/23/22 06/23/22 Previous Rx's Medication Instructions Recorded solifenacin 5 mg tablet 5 mg PO DAILY #90 tabs 07/01/22 Allergies Allergy/AdvReac Type Severity Reaction Status Date / Time gabapentin Allergy Severe Hallucinati Verified 06/23/22 15:56 ng nortriptyline Allergy Severe Chest Pain Verified 06/23/22 15:56 duloxetine [From Cymbalta] Allergy Intermediate Palpitation Verified 06/23/22 15:56 s pregabalin Allergy Intermediate VISION Verified 06/23/22 15:56 CHANGES Review of Systems Review of Systems Narrative: See HPI Patient History Medical History Cyst of epididymis Neoplasm of uncertain behavior of left kidney Thyroid disease Peripheral vascular disease Inflammatory bowel disease High blood pressure GERD (gastroesophageal reflux disease) Coronary artery disease involving [place] heart COPD (chronic obstructive pulmonary disease) Chest pain Arthritis Colon cancer Surgical History History of testicular surgery History of thyroid surgery History of hernia surgery History of colon surgery History of thoracic surgery H/O abdominal surgery Family History Mother Cancer Sister Thyroid cancer Grandmother Cancer Family/Other Cancer Coronary artery disease Hyperlipidemia Hypertension Thyroid cancer Inflammatory bowel disease Social History marital status: unmarried,single number of children: 0 household members: family Smoking Status: Former smoker Type(s) of exercise: other frequency: other Smoking Status: Former smoker alcohol intake frequency: 0-2 drinks per day Substance Use Type: marijuana Exam Initial Vital Signs Initial Vital Signs: Vital Signs Pulse Rate 61 08/10/23 20:06 Respiratory Rate 19 08/10/23 20:06 Const General: cooperative, comfortable and No ill appearing HENSD Head: normal to inspection and normocephalic GI Inspection: non-distended Palpation: No guarding External: normal external exam Neuro General: patient alert and patient awake Extrem General: capillary refill normal Course Orders Ordered: ED Orders 08/10/23 19:42 CT abdomen pelvis w con Stat 08/10/23 19:43 US scrotum Stat 08/10/23 20:05 Complete Blood Count AUTO DIFF Stat Comprehensive Metabolic Panel Stat Lipase Stat Discontinued Medications Hydrocodone Bitart/Acetaminophen (Hydrocodone/Acet 5/325 Tablet) 1 tab PO NOW ONE Stop: 08/10/23 19:43 Last Admin: 08/10/23 19:55 Dose: Not Given Documented By: LILLIAN Vital Signs Vital signs: Vital Signs - 8 hr 08/10/23 20:06 08/10/23 20:07 08/10/23 20:07 Temperature Pulse Rate 61 60 Respiratory Rate 19 18 Blood Pressure 127/76 Pulse Oximetry 97 Oxygen Delivery Method Room Air 08/10/23 20:30 08/10/23 20:30 08/10/23 20:46 Temperature 98.3 F Pulse Rate 60 60 Respiratory Rate 20 16 Blood Pressure 121/86 121/86 Pulse Oximetry 96 Oxygen Delivery Method Room Air Room Air 08/10/23 21:01 08/10/23 21:02 08/10/23 21:02 Temperature Pulse Rate 60 60 Respiratory Rate 19 Blood Pressure 127/73 Pulse Oximetry 96 98 Oxygen Delivery Method Room Air Room Air 08/10/23 21:40 08/10/23 21:53 08/10/23 21:53 Temperature Pulse Rate 64 60 Respiratory Rate 18 20 Blood Pressure 124/81 Pulse Oximetry 98 97 Oxygen Delivery Method Room Air 08/10/23 22:00 08/10/23 22:00 08/10/23 22:30 Temperature Pulse Rate 60 Respiratory Rate 17 Blood Pressure 117/78 123/76 Pulse Oximetry 95 Oxygen Delivery Method Room Air 08/10/23 22:30 08/10/23 22:49 08/10/23 22:49 Temperature Pulse Rate 60 59 L Respiratory Rate 21 21 Blood Pressure 134/73 Pulse Oximetry 94 96 Oxygen Delivery Method Room Air 08/10/23 23:00 08/10/23 23:00 08/10/23 23:30 Temperature Pulse Rate 59 L 60 Respiratory Rate 14 20 Blood Pressure 118/82 Pulse Oximetry 93 93 Oxygen Delivery Method Room Air Room Air 08/10/23 23:30 Temperature Pulse Rate Respiratory Rate Blood Pressure 138/78 Pulse Oximetry Oxygen Delivery Method Medical Decision Making Lab Data Lab results reviewed: Yes I reviewed the patient's lab results. 08/10/23 20:05 08/10/23 20:05 Labs: Lab Results 08/10/23 Range/Units 20:05 WBC 7.4 (4.5-11.0) X10^3/uL RBC 4.86 (4.5-5.9) X10^6/uL Hgb 15.0 (13.5-17.5) g/dL Hct 44.6 (41-53) % MCV 91.6 (80-100) fL MCH 30.7 (26-34) PG MCHC 33.6 (30-36) % RDW 14.2 (11.6-14.8) % Plt Count 263 (150-400) X10^3/uL Neut % (Auto) 57.4 (50-75) % Lymph % (Auto) 28.8 (25-40) % [place] % (Auto) 5.1 (3-14) % Eos % (Auto) 7.7 H (2-4) % Baso % (Auto) 1.0 (0-2) % Neut # (Auto) 4200 (7781-0703) /uL Lymph # (Auto) 2100 (3439-2934) /uL [place] # (Auto) 400 (0-900) /uL Eos # (Auto) 600 H (0-450) /uL Baso # (Auto) 100 (0-100) /uL Sodium 140 (137-145) mmol/L Potassium 4.2 (3.4-5.1) mmol/L Chloride 104 (98-107) mmol/L Carbon Dioxide 30 (22-32) mmol/L BUN 12 (9-20) mg/dL Creatinine 1.00 (0.66-1.25) mg/dL Estimated GFR > 60 (>60) mL/min BUN/Creatinine Ratio 12.0 (6-22) Glucose 89 (80-110) mg/dL Calcium 9.4 (8.4-10.2) mg/dL Total Bilirubin 0.5 (0.2-1.3) mg/dL AST 31 (17-59) IU/L ALT 16 (<50) IU/L Alkaline Phosphatase 92 (38-126) U/L Total Protein 7.4 (6.3-8.2) g/dL Albumin 4.5 (3.5-5.0) g/dL Globulin 2.9 (1.7-4.1) g/dL Albumin/Globulin Ratio 1.6 (1.0-2.8) Lipase 193 (23-300) U/L Urine Dip Bedside Urine Glucose Negative Bedside Urine Bilirubin - Negative Bedside Urine Ketone - Negative Urine Specific [place] 1.015 Bedside Urine Occult Blood - Negative Bedside Urine pH 6.5 Bedside Urine Protein - Negative Bedside Urine Urobilinogen - Negative Bedside Urine Nitrite - Negative Bedside Urine Leukocytes - Negative Esterase Point of care testing: Urine Dip Bedside Urine Glucose Negative Bedside Urine Bilirubin - Negative Bedside Urine Ketone - Negative Urine Specific [place]wey 1.015 Bedside Urine Occult Blood - Negative Bedside Urine pH 6.5 Bedside Urine Protein - Negative Bedside Urine Urobilinogen - Negative Bedside Urine Nitrite - Negative Bedside Urine Leukocytes - Negative Esterase Imaging Data CT scan - abdomen/pelvis: Radiologist's Impression: PROCEDURE: CT ABDOMEN PELVIS W CON INDICATIONS: Lower abdominal pain after surgery 2 months ago TECHNIQUE: After the administration of intravenous contrast, axial sections acquired from the lung bases to the pubic symphysis. Coronal and sagittal reformats were performed. For radiation dose reduction, the following was used: automated exposure control, adjustment of mA and/or kV according to patient size. COMPARISON: [facility], CT, CT ABDOMEN PELVIS WITH CONTRAST, 06/09/2023, 6:49. [facility], CT, CT ABDOMEN PELVIS W CON, 02/16/2021, 3:53. FINDINGS: Image quality: Diagnostic. Lower Chest: Moderate emphysematous changes. Pacemaker leads partially seen. Trace pericardial effusion. ABDOMEN: Liver: Several thin-walled hepatic hypodensities of varying sizes. No solid mass. Gallbladder: No wall thickening or calcified stones. Biliary ducts: No biliary dilation. Pancreas: Chronic mild pancreatic ductal dilatation. Stable contour. Spleen: Normal size. Adrenal Glands: No adrenal nodules. Kidneys and Ureters: Symmetric enhancement. No nephrolithiasis or hydronephrosis. No hydroureter. Stomach and Bowel: Prior colectomy and distal ileal rectal anastomosis. There is a large quantity of solid stool in the rectum. Findings are similar appearance compared to the prior exam. There are mildly prominent fluid-filled small bowel loops with air-fluid levels, though less distended compared to the prior exam. Stomach and proximal small bowel loops are within normal limits. Peritoneum: No abnormal intraperitoneal fluid. No free air. Ventral Wall: No significant ventral hernia. Abdominal Nodes: No retroperitoneal or mesenteric adenopathy by size criteria. Vessels: Chronic fusiform mid abdominal aortic aneurysm measures 4.2 cm in AP direction. No periaortic fat stranding or fluid. Distal abdominal aortic atherosclerosis. Patent portal vein. Normal caliber IVC. PELVIS: Pelvic Organs: Moderate prostatomegaly. Bladder: No bladder wall thickening, accounting for underdistention. Pelvic Nodes: No enlarged lymph nodes. Miscellaneous: There is trace fluid along the right low pelvis, though smaller in quantity compared to prior. Bones: No aggressive osseous abnormality. IMPRESSION: There is early or partial obstruction at the ileocolonic anastomosis but less extensive compared to prior. There is moderate rectal obstipation. Abdominal aortic aneurysm is stable compared to the most recent prior study but enlarged compared to 2020. scrotal us: Radiologist's Impression: PROCEDURE: US SCROTUM INDICATIONS: Bilateral scrotal pain TECHNIQUE: Real-time scanning was performed of the scrotum and testicles, with image documentation. Color and pulse Doppler interrogation was performed of both testicles. COMPARISON: [facility], , US SCROTUM, 03/28/2022, 18:11. FINDINGS: Right: Testicle is normal in size at 4.4 x 1.2 x 3.3 cm, and homogenous in echotexture. There is a small cyst cluster inferior to the right testicle, similar compared to prior. The epididymal head has been resected. There is a tiny cyst in the region. Testicular morphology is stable demonstrating slight prominence of the mediastinum testes. . No hydrocele or varicoceles. Overlying scrotal skin is normal in thickness. Left: Testicle is normal in size at 3.8 x 1.7 x 2.7 cm, and homogeneous in echotexture. Left testicle appears enlarged and slightly hypervascular. Trace left hydrocele. No varicoceles. Overlying scrotal skin is normal in thickness. Doppler: Color and pulse Doppler demonstrate normal and symmetric arterial flow in both testicles. IMPRESSION: Trace left hydrocele left epididymal enlargement with vascularity increased. Findings suggestive epididymitis. Cystic changes in the right epididymal bed post resection. [facility] Narrative Medical decision making narrative: Patient's symptoms today have been present for the past several weeks. He has an ultrasound that was concerning for left-sided epididymitis and this could be potentially some of the cause of his symptoms today. The CT scan shows potentially a partial bowel obstruction but according to the report is improved from comparison CT scans. He was still having bowel movements and passing flatus and not vomiting. I did discuss the case with on-call general surgery at [facility] who stated that there was little concern based on his presentation that this was an obstruction. Plan will be to have him follow-up with General surgery as an outpatient. I do feel that this is reasonable. Will discharge home with instructions to contact the general surgery department tomorrow for follow-up. Patient was given return precautions. He expressed understanding and agreement. Discharge Plan Departure Patient Disposition: Home Clinical Impression: Abdominal pain, Epididymitis Instructions: DI for Epididymitis, DI for Abdominal Pain-Adult Activity Restrictions/Additional Instructions: You should be receiving a call from the [facility] General surgery Department sometime tomorrow for a follow-up within the next couple days. Continue to take all of your medications as directed. Also contact your primary care doctor for a follow-up. Return to the emergency department for new or worsening symptoms. Prescriptions: No Action solifenacin 5 mg tablet 5 mg PO DAILY Qty: 90 3RF albuterol sulfate [ProAir HFA] 90 mcg/actuation HFA aerosol inhaler 2 puff INHALATION Q4HR Patient Comments: INHALE 2 PUFFS BY MOUTH EVERY FOUR HOURS NEEDED FOR WHEEZING OR SHORTNESS OF BREATH alfuzosin [Uroxatral] 10 mg tablet extended release 24 hr 10 mg PO DAILY Eliquis 5 mg tablet 5 mg PO BID Patient Comments: TAKE ONE TABLET BY MOUTH TWICE DAILY levothyroxine [Synthroid] 175 mcg tablet 175 mcg PO DAILY Patient Comments: TAKE ONE TABLET BY MOUTH ONE TIME DAILY lisinopril [Zestril] 2.5 mg tablet 2.5 mg PO DAILY Patient Comments: TAKE ONE TABLET BY MOUTH ONE TIME DAILY metoprolol tartrate 25 mg tablet 12.5 mg PO BID Patient Comments: TAKE 1/2 TABLET BY MOUTH TWICE DAILY naloxone [Narcan] 4 mg/actuation spray,non-aerosol 1 spray INTRANASAL PRN (Reason: Sedation) Patient Comments: FOR SUSPECTED OPIOID OVERDOSE ADMINISTER A SINGLE SPRAY INTO 1 NOSTRIL, THEN SEEK EMERGENCY MEDICAL CARE. MAY REPEAT EVERY 2-3 MINUTES IF MINIMAL OR NO RESPONSE. oxycodone 10 mg tablet 10 mg PO Q4-5H Patient Comments: TAKE ONE TABLET BY MOUTH EVERY SIX HOURS NEEDED FOR MODERATE PAIN gabapentin PO Referrals: Mary Mills DO [Primary Care Provider] - Stand Alone Forms: Patient Portal/API
[2023-08-10 20:31] LABS: Add Manual Diff / Slide Review NO; Basophils Absolute Auto 100 /uL (0-100); Eosinophils Absolute Auto 600 /uL (0-450); Eosinophils Percent Auto 7.7 % (2-4); Hematocrit 44.6 % (41-53); Lymphocytes Absolute Auto 2100 /uL (1100-4500); Lymphocytes Percent Auto 28.8 % (25-40); Mean Corpuscular HGB Conc 33.6 % (30-36); Mean Corpuscular Hemoglobin 30.7 PG (26-34); Mean Corpuscular Volume 91.6 fL (80-100); Monocytes Absolute Auto 400 /uL (0-900); Monocytes Percent Auto 5.1 % (3-14); Neutrophils Absolute Auto 4200 /uL (1500-7000); Neutrophils Percent Auto 57.4 % (50-75); Platelet Count 263 X10^3/uL (150-400); Red Blood Cell Count 4.86 X10^6/uL (4.5-5.9); Red Cell Distribution Width 14.2 % (11.6-14.8); White Blood Cell Count 7.4 X10^3/uL (4.5-11.0)
[2023-08-10 20:32] LABS: Alanine Aminotransferase 16 IU/L (<50); Albumin 4.5 g/dL (3.5-5.0); Albumin Globulin Ratio 1.6 (1.0-2.8); Alkaline Phosphatase 92 U/L (38-126); Aspartate Aminotransferase 31 IU/L (17-59); Bilirubin Total 0.5 mg/dL (0.2-1.3); Blood Urea Nitrogen 12 mg/dL (9-20); Calcium 9.4 mg/dL (8.4-10.2); Carbon Dioxide 30 mmol/L (22-32); Chloride 104 mmol/L (98-107); Estimated Glomerular Filt Rate > 60 mL/min (>60); Globulin 2.9 g/dL (1.7-4.1); Glucose 89 mg/dL (80-110); HEMOLYSIS < 15 (0-50); Lipase 193 U/L (23-300); Potassium 4.2 mmol/L (3.4-5.1); Sodium 140 mmol/L (137-145); Total Protein 7.4 g/dL (6.3-8.2)
== END 2023-08-10 23:45 | disposition home or self-care (01) ==
PROVIDERS: Emergency Provider Emergency Medicine; Family Provider Family Medicine; PCP Family Medicine
DX: R10.30 Lower abdominal pain, unspecified (principal); N45.1 Epididymitis; Z98.890 Other specified postprocedural states
CPT/HCPCS: 36415; 74177; 76870; 80053; 81003; 83690; 85025; 99283; 99284

== ENCOUNTER → 2023-09-11 16:01 | Outpatient (CLI) | payer MEDICARE, MEDICAID, SELFPAY ==
[2021-08-22 10:02] VITALS: BMI 18.3
--- NOTE | 2023-09-11 16:02 | DI.ECHO.S_ITS ---
[facility]---------+ [facility] : : [address] : [address] : : [id number] : : Phone: [phone] Echocardiogram Report + + :Name: ARUTRO DELGADILLO Study Date: 09/11/2023 Height: 72 in : :Hospital ReadingLocation: Weight: 135 lb : : Gender: Male BSA: 1.8 m2 : :: 1955 Age: 67 yrs BP: 110/76 mmHg: :Reason For Study: PERICARDIAL EFFUSION : :Ordering Physician: ISAIAS, : :SMITH Performed By: Juan Merida : :Referring: SMITH ESPARZA : + + Interpretation Summary The left ventricle is normal in size. Left ventricular ejection fraction is estimated to be 50 +/- 5%. There has been no significant change in LVEF since the previous exam. The right ventricular systolic function is normal. There is a pacemaker lead in the right ventricle. No significant valvular pathology seen. The IVC is of normal diameter and collapses greater than 50% with a sniff. This suggests a low right atrial pressure of 3 mm Hg. Ascending aorta mild to moderately enlarged. 4.3 cm in diameter. Previously 4.2 cm in diameter. Procedure: A two-dimensional transthoracic echocardiogram with color flow and Doppler was performed. The study quality was technically adequate. Comparison is made with the echocardiogram of 06/13/2022. The patient was in sinus rhythm with heart rates between 60 bpm during the exam. Left Ventricle: The left ventricle is normal in size. Proximal septal thickening is noted. A false chord is noted (normal variant). There is no thrombus. Left ventricular ejection fraction is estimated to be 50 +/- 5%. There has been no significant change since the previous exam. Septal motion is consistent with conduction abnormality. Diastolic parameters suggest a relaxation abnormality of the left ventricle, consistent with probable normal filling pressures. Right Ventricle: The right ventricle is mildly dilated. There is a pacemaker lead in the right ventricle. The right ventricular systolic function is normal. Atria: The left atrial size is normal. The right atrium is mildly dilated. There is a catheter/pacemaker lead seen in the right atrium. The interatrial septum grossly appears intact with no obvious evidence for an atrial septal defect. The thickening of interatrial septum suggests lipomatous hypertrophy. Mitral Valve: The mitral valve leaflets are slightly calcified. There is no mitral valve stenosis. There is no mitral regurgitation noted. Aortic Valve: The aortic valve is trileaflet. The aortic valve opens well. There is no aortic valve stenosis. No aortic regurgitation is present. Tricuspid Valve: The tricuspid valve is normal. There is no tricuspid stenosis. There is trace tricuspid regurgitation. The right ventricular systolic pressure is estimated to be at least 26.0 mmHg based on an estimated right atrial pressure of 3 mm Hg. Pulmonic Valve: The pulmonic valve is not well visualized. There is no pulmonic valvular stenosis. There is mild pulmonic regurgitation. Great Vessels: The aortic root is normal size. The ascending aorta is mild- moderately enlarged. The IVC is of normal diameter and collapses greater than 50% with a sniff. This suggests a low right atrial pressure of 3 mm Hg. Pericardium/ Pleura There is no pericardial effusion. There is an anterior echo-free space consistent with a fat pad. There is no pleural effusion. MMode/2D Measurements & Calculations LVIDd: 4.8 cm LVOT diam: 2.1 cm LVIDs: 3.1 cm Ao root diam: 4.0 cm FS: 35.8 % asc Aorta Diam: 4.3 cm IVSd: 0.91 cm LVPWd: 1.0 cm LV north. diameter/BSA (cm/m^2): 2.7 LV sys. diameter/BSA (cm/m^2): 1.7 LA A2 area: 18.2 cm2 RA long axis: 4.3 cm LA A4 area: 15.2 cm2 RA area: 14.5 cm2 LA length (vol): 4.7 cm RA vol: 41.7 ml LA vol: 50.0 ml RA : 23.1 ml/m2 LA vol index: 27.8 ml/m2 IVC diam: 1.3 cm RVD1 (basal): 4.3 cm RVD2 (mid): 3.8 cm TAPSE: 2.4 cm Doppler Measurements & Calculations Ao V2 max: 112.0 cm/sec LVOT Max Antoni: 80.6 cm/sec Ao V2 mean: 82.8 cm/sec LV V1 max P.6 mmHg Ao max P.0 mmHg LV V1 VTI: 16.9 cm Ao mean P.0 mmHg FELIPE(I,D): 2.5 cm2 Ao V2 VTI: 23.0 cm FELIPE(V,D): 2.4 cm2 sev ratio: 0.74 FELIPE indexed to BSA (cm^2/m^2): 1.4 MV E max antoni: 48.4 cm/sec TR max antoni: 240.0 cm/sec MV A max antoni: 53.3 cm/sec TR max P.0 mmHg MV E/A: 0.91 PA V2 max: 80.7 cm/sec Med Peak E' Antoni: 6.1 cm/sec PA V2 mean: 56.0 cm/sec E/E' med: 8.0 PA mean P.4 mmHg Lat Peak E' Antoni: 5.4 cm/sec PA pr(Accel): 39.6 mmHg E/E' lat: 9.0 E/e' average: 8.5 MV dec time: 0.28 sec SV(LVOT): 57.6 ml Reading Physician:04:28 PM
== END ==
PROVIDERS: Family Provider Family Medicine; PCP Family Medicine; Referring Provider Internal Medicine Cardiovascular Disease; Visit Provider Internal Medicine Cardiovascular Disease
DX: I37.1 Nonrheumatic pulmonary valve insufficiency (principal); I31.39 Other pericardial effusion (noninflammatory); I77.89 Other specified disorders of arteries and arterioles; Z95.0 Presence of cardiac pacemaker
CPT/HCPCS: 93306

== ENCOUNTER → 2023-11-17 13:03 | Outpatient (CLI) | payer MEDICARE, MEDICAID, SELFPAY ==
[2021-08-22 10:02] VITALS: BMI 18.3
--- NOTE | 2023-11-17 | DI.CT.S_ITS ---
PROCEDURE: CT ABDOMEN PELVIS W CON INDICATIONS: Pelvic and perineal pain TECHNIQUE: After the administration of intravenous contrast, axial sections acquired from the lung bases to the pubic symphysis. Coronal and sagittal reformats were performed. For radiation dose reduction, the following was used: automated exposure control, adjustment of mA and/or kV according to patient size. COMPARISON: [facility], CT, CT ABDOMEN PELVIS W CON, 08/10/2023, 20:53. FINDINGS: Lower thorax: Moderate pulmonary emphysema. Pacer wires. Liver: Normal in size and attenuation. No contour deformity present. Multiple hepatic cysts measure up to 3.6 cm Biliary system: No calcified cholelithiasis or pericholecystic inflammation. No intra or extrahepatic bile duct dilatation. Pancreas: Unremarkable without mass or inflammation evident. Spleen: Normal in size and density. Adrenals: Normal morphology and density. Reproductive system: Unremarkable as visualized. Urinary system: Normal renal size and attenuation. Left renal cyst 2.9 cm No renal calculi, hydronephrosis, or solid mass present. Bladder wall thickening Gastrointestinal system: Colectomy. Ileo colic anastomosis intact. No obstruction. Appendix: No findings to suggest acute appendicitis. Peritoneal spaces: No mesenteric or retroperitoneal adenopathy. No free air. No free fluid. Vasculature: Infrarenal abdominal aortic aneurysm measures 5.1 x 5.2 cm, previously 4.0 by 4.7 cm Abdominal wall: Abdominal wall intact without evidence of ventral or inguinal hernias. Musculoskeletal: Normal bone mineralization. Degenerative disc disease and arthropathy noted in lower lumbar spine. No acute fractures. IMPRESSION: Moderate fecal debris in the rectum. Colectomy and ileocolic anastomosis intact. Bladder wall thickening is stable from the prior exam. Abdominal aortic aneurysm measures 5.1 x 5.2 cm, increased from the previous study Approved by: Berlin Guajardo M.D. on 11/17/2023 at 16:59
[2023-11-17 13:29] LABS: Estimated Glomerular Filt Rate > 60 mL/min (>60)
== END ==
PROVIDERS: Radiology Diagnostic Radiology; Family Provider Family Medicine; PCP Internal Medicine; Referring Provider Internal Medicine; Visit Provider Internal Medicine
DX: I71.40 Abdominal aortic aneurysm, without rupture, unspecified (principal); K76.89 Other specified diseases of liver; N28.1 Cyst of kidney, acquired; M51.36 Other intervertebral disc degeneration, lumbar region; M47.816 Spondylosis without myelopathy or radiculopathy, lumbar region; J43.9 Emphysema, unspecified; K52.9 Noninfective gastroenteritis and colitis, unspecified; R10.2 Pelvic and perineal pain; Z90.49 Acquired absence of other specified parts of digestive tract; Z98.0 Intestinal bypass and anastomosis status; Z95.0 Presence of cardiac pacemaker
CPT/HCPCS: 36415; 74177; 82565; Q9967

== ENCOUNTER → 2024-05-24 12:07 | Outpatient (CLI) | payer MEDICARE, MEDICAID, SELFPAY ==
[2021-08-22 10:02] VITALS: BMI 18.3
--- NOTE | 2024-05-24 12:08 | DI.US.S_ITS ---
PROCEDURE: US SCROTUM INDICATIONS: SCROTAL PAIN TECHNIQUE: Real-time scanning was performed of the scrotum and testicles, with image documentation. Color and pulse Doppler interrogation was performed of both testicles. COMPARISON: [facility], US SCROTUM, 08/10/2023, 21:28. [facility], US SCROTUM, 03/28/2022, 18:11. FINDINGS: Right: Testicle is normal in size at 1.5 x 2.9 x 3.9 cm, and moderately heterogeneous in echotexture. The patient reports prior testicular trauma with rupture 1 year ago as is the presumed cause. The epididymis inferiorly shows clustered multiple cysts measuring up to 1.5 x 1.8 x 2.7 cm. No hydrocele or varicoceles. Overlying scrotal skin is normal in thickness. Left: Testicle is normal in size at 3.2 x 1.9 x 2.8 cm, and homogeneous in echotexture. Slight left hydrocele and no varicoceles. Normal epididymis. Overlying scrotal skin is normal in thickness. Doppler: Color and pulse Doppler demonstrate normal and symmetric arterial flow in both testicles. IMPRESSION: Heterogeneous right testicular echotexture, without mass. The patient reports right testicular trauma with testicular rupture approximately 1 year ago. Also, prior testicular ultrasound 08/10/23 report indicates prior testicular epididymal cysts resection on the right. Clustered cysts are seen in that area, lower right epididymis margin. From the history obtained from the patient surgical excision of at least a portion of the right epididymis was performed 40 years ago. Urology consultation may be warranted given the complex history and persistent pain. Dictated by: Vladimir Perez M.D. on 05/24/2024 at 16:47 Approved by: Vladimir Perez M.D. on 05/24/2024 at 16:57
== END ==
LOC: US 12:07
PROVIDERS: Family Provider Family Medicine; PCP Internal Medicine; Referring Provider Student in an Organized Health Care Education/Training Program; Visit Provider Student in an Organized Health Care Education/Training Program
DX: N50.82 Scrotal pain (principal); N50.3 Cyst of epididymis
CPT/HCPCS: 76870; 93975